=== PATIENT | female | born 1980 | race Caucasian/White ===

== ENCOUNTER 2020-10-20 13:05 | Outpatient (REF) | payer OTHER, SELFPAY | END 2020-10-20 13:06 | disposition home or self-care (01) | LOC: HO.LAB 13:05 | PROVIDERS: PCP Internal Medicine; Visit Provider Internal Medicine | DX: Z20.822 Contact with and (suspected) exposure to COVID-19 (principal) | CPT/HCPCS: C9803; U0003; U0005 ==

== ENCOUNTER 2020-11-27 12:50 | Outpatient (REF) | payer OTHER, SELFPAY | END 2020-11-27 12:51 | disposition home or self-care (01) | LOC: HO.LAB 12:50 | PROVIDERS: PCP Internal Medicine; Visit Provider Internal Medicine | DX: Z20.822 Contact with and (suspected) exposure to COVID-19 (principal) | CPT/HCPCS: C9803; U0003; U0005 ==

== ENCOUNTER → 2023-03-17 08:15 | Outpatient (BNV) | payer OTHER, SELFPAY | PROVIDERS: Visit Provider Psychiatry & Neurology Psychiatry | DX: F31.30 Bipolar disorder, current episode depressed, mild or moderate severity, unspecified (principal); F41.8 Other specified anxiety disorders; F17.200 Nicotine dependence, unspecified, uncomplicated; F11.21 Opioid dependence, in remission | CPT/HCPCS: 90792; 99211; 99213 ==

== ENCOUNTER 2023-03-28 09:45 | Outpatient (RCR) | payer OTHER, SELFPAY ==
[2023-03-14 12:02] VITALS: BMI 39.7
[2023-03-14 12:04] VITALS: BP 106/70; PULSE 96; TEMP 36.8
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
--- NOTE | 2023-03-16 17:59 | HO.PHP ---
Client's case has been opened and reviewed in treatment team.
--- NOTE | 2023-03-18 00:05 | HO.PHPPROGNO ---
Subjective Subjective Date of Service: 03/17/23 Reason For Visit: bipolar,GISELA,hoarding d/o Interim History: Has had an uneventful week. Had trouble filling the Wellbutrin because was ordered as 50 mg (and expectedly pharmacy takes issue with cutting SRs despite reported data/documentation (see admission note), but patient still wants to get started on Wellbutrin SR 50 mg. Will order at 100 mg SR and patient knows to cut in half once. If needing a dose higher than 50 mg, we will likely switch to a different medication. Patient has otherwise been compliant on medications. She admits she often loses the 25 mg tablets she takes of the 250 mg of Lamcital and is agreeable to increasing the dose to 300 mg/d. We will start splitting the dose to BID and for now will take 100 mg in AM and 200 mg in PM. She inquires about sleep, saying she needs help with sleep. She asks if she can have doxepin because her sister takes this medication, however her sister is on no other medications, and I have some concerns about starting TCA given drug interactions and would need to order a baseline EKG as patient had been hospitalized twice last year for complications related to treatment with Wegovy and had cardiac monitoring for tacchycardia. Instead we agree to trial of gabapentin for sleep and will start at 300 mg at night, and she may increase dose to 600 mg for effect over the weekend if needed. Follow up next week. Medication Compliance: Yes Side effects from medications: No Attending Groups: Yes Review of Systems Acute medical concerns: No Diagnostics Vital Signs (24Hr): BMI result Body Mass Index 39.7 Assessment & Plan Assessment & Plan (1) Bipolar affective, depress, unspec: Status: Acute Code(s): F31.30 - Bipolar disorder, current episode depressed, mild or moderate severity, unspecified (2) Other specified anxiety disorders: Status: Acute Code(s): F41.8 - Other specified anxiety disorders (3) Nicotine dependence with current use: Status: Acute Code(s): F17.200 - Nicotine dependence, unspecified, uncomplicated (4) Opioid dependence in remission: Status: Acute Code(s): F11.21 - Opioid dependence, in remission Plan increase Lamcital to 300 mg/d (split 100/200) if tolerated may eventually split 150 mg bid start gabapentin 300 - 600 mg qhs for sleep will cont with plan to start Wellbutrin SR 50 mg qAM (pt eager to start, as she had been successfully treated for years on WB she feels it was extrenuous circumstances that lent to developing seizure x1) pending lab work continue to monitor Patient educated on: diagnosis and medication risk/benefits Informed Consent: understands Reason for contiued partial hosp. stay Substantial Risk for: rapid decompensation and med/psych decompensation Certification I certify that partial hospital treatment is medically necessary due to the symptoms and problems resulting from the patient's mental illness and the failure to treat the patient at the partial hospital level of care would likely result in the patient requiring inpatient psychiatric care which could not be prevented at a less intensive level of care. Total time managing care of this patient today _20___ minutes. Discharge Plan Discharge Attending provider: Mesha Segovia Medications: New lamotrigine 100 mg tablet See Rx Instructions .ROUTE .COMPLEX Qty: 30 0RF Rx Instructions: take 1 tablet po qAM and take 2 tablets po qHS gabapentin 300 mg capsule 300 - 600 mg PO BEDTIME Qty: 20 0RF Changed bupropion HCl [Wellbutrin SR] 100 mg tablet sustained-release 12 hr 100 mg PO QAM Qty: 30 0RF No Action clonidine HCl 0.1 mg tablet See Rx Instructions .ROUTE .COMPLEX Rx Instructions: Take one tab at Bedtime as needed and one tab daily in the morning. lamotrigine 200 mg tablet 200 mg PO BEDTIME Rx Instructions: Take with 2 25 mg tabs for a total dose of 250 mg at bedtime. clonazepam 0.5 mg tablet See Rx Instructions .ROUTE .COMPLEX Rx Instructions: Take one tab in the moring, one and a half tabs at Bedtime, and one tab PRN for anxiety. lamotrigine 25 mg tablet 50 mg PO BEDTIME Rx Instructions: Take 2 tabs at HS with 200 mg tab for a total daily dose of 250 mg. prazosin 5 mg capsule 5 mg PO BEDTIME omeprazole 20 mg capsule,delayed release(DR/EC) 20 mg PO DAILY norethindrone ac-eth estradiol [Microgestin 02/25 (21)] 1-20 mg-mcg Tablet 1 tab PO DAILY fluticasone propionate 50 mcg/actuation spray,suspension 2 spray intranasal DAILY lurasidone 80 mg tablet 80 mg PO DAILY Stand Alone Forms: Patient Portal Discharge page
--- NOTE | 2023-03-24 23:46 | P.PNPSP_ITS ---
Subjective Subjective Date of Service: 03/24/23 Reason For Visit: bipolar,GISELA,hoarding d/o Interim History: Patient started on Wellbutrin SR 100 mg , she notes having more energy in the AM , mood is better . She denies any AE, no s/s of overactiviation, hypomania, irritablity, insomnia. She has been taking the gabapenting and finds 900 mg is the right dose to help her get a good night's sleep. She denies any adverse effects. Sleep and energy are improved, appetite intact. She reports losing her bottle of clonazepam in her home somewhere, which has been difficult to find on account of hoarding habits. She has been unable to take any Klonopin over the past 2 days. She did not have many pills left in her bottle, She tried calling for her parhamcy for a refill but was told she is not due to refill until next week. She tried reachign out to her PCP and left a VM message but has not yet heard back and is worried she wont be hearing back since it is Monday. We discussed bridging her with a short trial of lorazepam over the long Holiday weekend, unless she finds that her PCP has sent the script today. Regardless she will only fill the one script. Medication Compliance: Yes Side effects from medications: No Attending Groups: Yes Review of Systems Acute medical concerns: No Mental Status Exam Mental Status Exam Narrative: Alert, oriented, in no acute distress. Calm, cooperative. Mood stable, affect appropriate. Speech normal. Thought process linear, coherent. Thought content related to stressors, denies any helplessness, hopelessness or SI.? No aggressive ideation or HI. No paranoia or delusional content elicited. No evidence of psychosis. Insight and judgment intact. Diagnostics Vital Signs (24Hr): BMI result Body Mass Index 39.7 Assessment & Plan Assessment & Plan (1) Bipolar affective, depress, unspec: Status: Acute Code(s): F31.30 - Bipolar disorder, current episode depressed, mild or moderate severity, unspecified (2) Other specified anxiety disorders: Status: Acute Code(s): F41.8 - Other specified anxiety disorders (3) Nicotine dependence with current use: Status: Acute Code(s): F17.200 - Nicotine dependence, unspecified, uncomplicated (4) Opioid dependence in remission: Status: Acute Code(s): F11.21 - Opioid dependence, in remission Plan will order brief course of lorazepam to cover patient over holiday weekend (in place of her lost clonazepam rx) continue Wellbutrin SR at 100 mg qAM (split 100/200) (pt eager to start, as she had been successfully treated for years on WB she feels it was extrenuous circumstances that lent to developing seizure x1) continue Lamcital 300 mg qd continue gabapentin at 900 mg qhs start gabapentin 300 mg BID prn anxiety pending lab work continue to monitor Patient educated on: diagnosis, medication risk/benefits and substance abuse Informed Consent: understands Reason for contiued partial hosp. stay Substantial Risk for: inability to function and med/psych decompensation Certification I certify that partial hospital treatment is medically necessary due to the symp toms and problems resulting from the patient's mental illness and the failure to treat the patient at the partial hospital level of care would likely result in the patient requiring inpatient psychiatric care which could not be prevented at a less intensive level of care. Total time managing care of this patient today _30___ minutes. Discharge Plan Discharge Attending provider: Mesha Segovia Medications: New clonazepam 0.5 mg tablet 0.5 mg PO BID PRN (Reason: anxiety, sleep) Qty: 22 0RF Continued clonazepam 0.5 mg tablet See Rx Instructions .ROUTE .COMPLEX Rx Instructions: Take one tab in the moring, one and a half tabs at Bedtime, and one tab PRN for anxiety. prazosin 5 mg capsule 5 mg PO BEDTIME omeprazole 20 mg capsule,delayed release(DR/EC) 20 mg PO DAILY norethindrone ac-eth estradiol [Microgestin 02/25 (21)] 1-20 mg-mcg Tablet 1 tab PO DAILY fluticasone propionate 50 mcg/actuation spray,suspension 2 spray intranasal DAILY gabapentin 600 mg tablet 600 mg PO BEDTIME Qty: 30 0RF Rx Instructions: take with 300 mg capsule to equal 900 mg QHS gabapentin 300 mg capsule 300 mg PO TID Qty: 90 0RF lamotrigine 100 mg tablet See Rx Instructions .ROUTE .COMPLEX 30 Days Qty: 90 0RF Rx Instructions: take 1 tablet po qAM and take 2 tablets po qHS lurasidone 80 mg tablet 80 mg PO DAILY 30 Days Qty: 30 0RF Changed clonidine HCl 0.1 mg tablet See Rx Instructions .ROUTE .COMPLEX PRN (Reason: for anxiety, heart racing) 30 Days Qty: 60 0RF Rx Instructions: Take one tab at Bedtime as needed and one tab daily in the morning. PRN; bupropion HCl [Wellbutrin SR] 100 mg tablet sustained-release 12 hr 100 mg PO QAM Qty: 30 0RF Discontinued lamotrigine 200 mg tablet 200 mg PO BEDTIME Rx Instructions: Take with 2 25 mg tabs for a total dose of 250 mg at bedtime. lamotrigine 25 mg tablet 50 mg PO BEDTIME Rx Instructions: Take 2 tabs at HS with 200 mg tab for a total daily dose of 250 mg. Stand Alone Forms: Patient Portal Discharge page Patient Education: Bipolar Disorder (DC)
--- NOTE | 2023-03-28 20:13 | P.PNPSP_ITS ---
Subjective Subjective Date of Service: 03/28/23 Reason For Visit: bipolar,GISELA,hoarding d/o Interim History: Patient seen for follow-up, anticipating discharge at the end of program today.? Reports no acute issues or concerns. Medication compliant, medications well- tolerated. Denies any adverse effects.? She reports having a stressful day today. Had difficulty sleeping last night on account of today being the last day, having some anticipatory anxiety leaving program - the structure has been helpful. She is trying to make steps to implement more structure in her day. Lorazepam has been helpful this week since she had lost her bottle of clonazepam in her house and is unable to refill until later next week. She left a VM message with her provider's office and will let them know she will need that refill once her lorazepam runs out. She reports having a good working relationship with her provider, who knows she struggles with hoarding. (often losing things). I suggest at some point she should get neuropsych testing. For the time being she reports great imporviements in mood a nd concetration with the Wellbutrin. Energy and productivity are good. She is aware to hold the medication in cases of GI illness, or other sickness, dehydration, lack of sleep (other context putting her at risk for seizures) Denies alcohol use. SHe has toelrated increase of Lamcital and addition of gabapentin. Mood is overall stable.? Denies any hopelessness or SI. Denies thoughts of harming self or others at this time. Denies any aggressive ideation or HI. Denies any paranoia or AH or VH. Sleep, appetite, energy stable. Mental Status Exam Mental Status Exam Narrative: Alert, oriented, in no acute distress. Calm, cooperative. Mood stable, affect appropriate. Speech normal. Thought process linear, coherent. Thought content related to stressors, denies any helplessness, hopelessness or SI.? No aggressive ideation or HI. No paranoia or delusional content elicited. No evidence of psychosis. Insight and judgment intact. Diagnostics Vital Signs (24Hr): BMI result Body Mass Index 39.7 Assessment & Plan Assessment & Plan (1) Bipolar affective, depress, unspec: Status: Acute Code(s): F31.30 - Bipolar disorder, current episode depressed, mild or moderate severity, unspecified (2) Other specified anxiety disorders: Status: Acute Code(s): F41.8 - Other specified anxiety disorders (3) Nicotine dependence with current use: Status: Acute Code(s): F17.200 - Nicotine dependence, unspecified, uncomplicated (4) Hoarding behavior: Status: Acute Code(s): F42.3 - Hoarding disorder (5) Attention and concentration deficit: Status: Acute Code(s): R41.840 - Attention and concentration deficit (6) Opioid dependence in remission: Status: Acute Code(s): F11.21 - Opioid dependence, in remission Plan Discharge from PHP gabapentin 300 mg BID - qAM and afternoon gabapentin 900 mg qHS Lamictal 300 mg (split 100/200) Wellbutrin SR 50-100 mg qAM as directed for ADHD sx discontinued: clonidine, patient will discontinue lorazepam after this script and will be able to refill/return to clonazepam continue other regular medications will defer further medication management to outpatient provider - next appointment 04/16 Refills sent to pharmacy Patient educated on: diagnosis and medication risk/benefits Informed Consent: understands Reason for contiued partial hosp. stay Substantial Risk for: stable for discharge Certification I certify that partial hospital treatment is medically necessary due to the symptoms and problems resulting from the patient's mental illness and the failure to treat the patient at the partial hospital level of care would likely result in the patient requiring inpatient psychiatric care which could not be prevented at a less intensive level of care. Total time managing care of this patient today __30__ minutes. Discharge Plan Discharge Attending provider: Mesha Segovia Medications: New gabapentin 300 mg capsule 300 mg PO TID Qty: 30 0RF gabapentin 600 mg tablet 600 mg PO BEDTIME Qty: 15 0RF Rx Instructions: take with 300 mg capsule to equal 900 mg QHS lorazepam 1 mg tablet 1 mg PO BID PRN (Reason: for anxiety, agitation, sleep) Qty: 14 0RF Continued prazosin 5 mg capsule 5 mg PO BEDTIME omeprazole 20 mg capsule,delayed release(DR/EC) 20 mg PO DAILY norethindrone ac-eth estradiol [Microgestin 02/25 ()] 1-20 mg-mcg Tablet 1 tab PO DAILY fluticasone propionate 50 mcg/actuation spray,suspension 2 spray intranasal DAILY lurasidone 80 mg tablet 80 mg PO DAILY lamotrigine 100 mg tablet See Rx Instructions .ROUTE .COMPLEX 30 Days Qty: 90 0RF Rx Instructions: take 1 tablet po qAM and take 2 tablets po qHS Changed clonidine HCl 0.1 mg tablet See Rx Instructions .ROUTE .COMPLEX PRN (Reason: for anxiety, heart racing) 30 Days Qty: 60 0RF Rx Instructions: Take one tab at Bedtime as needed and one tab daily in the morning. PRN; bupropion HCl [Wellbutrin SR] 100 mg tablet sustained-release 12 hr 100 mg PO QAM Qty: 30 0RF Discontinued lamotrigine 200 mg tablet 200 mg PO BEDTIME Rx Instructions: Take with 2 25 mg tabs for a total dose of 250 mg at bedtime. lamotrigine 25 mg tablet 50 mg PO BEDTIME Rx Instructions: Take 2 tabs at HS with 200 mg tab for a total daily dose of 250 mg. No Action clonazepam 0.5 mg tablet See Rx Instructions .ROUTE .COMPLEX Rx Instructions: Take one tab in the moring, one and a half tabs at Bedtime, and one tab PRN for anxiety. Stand Alone Forms: Patient Portal Discharge page Patient Education: Bipolar Disorder (DC)
== END 2023-03-28 23:59 | disposition home or self-care (01) ==
LOC: HO.PHPA 09:45
PROVIDERS: Visit Provider Psychiatry & Neurology Psychiatry
DX: F31.30 Bipolar disorder, current episode depressed, mild or moderate severity, unspecified (principal); F41.8 Other specified anxiety disorders; F42.3 Hoarding disorder; R41.840 Attention and concentration deficit; F17.200 Nicotine dependence, unspecified, uncomplicated; F11.21 Opioid dependence, in remission; Z79.899 Other long term (current) drug therapy
CPT/HCPCS: 90791; 90853

== ENCOUNTER → 2023-06-23 12:15 | Outpatient (BNV) | payer OTHER, SELFPAY | PROVIDERS: Visit Provider Psychiatry & Neurology Psychiatry | DX: F31.9 Bipolar disorder, unspecified (principal); F41.8 Other specified anxiety disorders; F42.3 Hoarding disorder; R41.840 Attention and concentration deficit; F11.21 Opioid dependence, in remission | CPT/HCPCS: 90792; 99213; 99499 ==

== ENCOUNTER 2023-07-11 11:30 | Outpatient (RCR) | payer OTHER, SELFPAY ==
[2023-06-21 16:29] VITALS: BP 100/62; PULSE 64; RESP 16; TEMP 36.2
--- NOTE | 2023-06-22 17:05 | HO.PHP ---
Pt's case has been opened and reviewed in team.
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
--- NOTE | 2023-06-26 08:04 | HO.PHP ---
Karyn contacted PHP Admin, Reba, who informed the team that Karyn will not be in attendance to program today due to becoming sick. Karyn will be here tomorrow.
--- NOTE | 2023-06-27 08:34 | HO.PHP ---
Late Entry 06/27/23: [facility] admin, Reba noted that Karyn won't be in attendance to program today because she is sick. Reba reported no safety concerns.
--- NOTE | 2023-06-27 09:35 | HO.PHP ---
At 9:30 am marketing writer called Karyn to check in and assess for safety since pt has called out 2 days in a row. Pt stated she has been having too much anxiety to drive. Needed prompting to elaborate, said she takes back roads to [facility] because she feels nervous to drive on the highway so it takes longer, stated she needed more time this morning. Pt encouraged to come to programming tomorrow, pt stated she will. Pt reminded of the attendance policy. Reported she is safe, no SI.
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
--- NOTE | 2023-06-30 23:46 | HO.PHPPROGNO ---
Subjective Subjective Date of Service: 06/30/23 Reason For Visit: bipolar,GISELA,hoarding d/o Interim History: Patient reports week is going well. Mood is pretty good . She reports sleeping 13 hours last night, this comes after getting only a few hours of sleep for the couple nights before. She said this is a familar patterns of undersleeping/oversleeping. Feels rested today. Energy fluctuating. Energy currently at a 6 . Reports mood stability at a 7 out of 10 today. Denies any SI, HI, AH,VH. Medication Compliance: Yes Side effects from medications: No Attending Groups: Yes Review of Systems Acute medical concerns: No Mental Status Exam Mental Status Exam Narrative: Alert, oriented, in no acute distress. Cooperative, engaged. Mood ok , affect elevated, mood congruent no lability noted. Speech normal. Thought process scattered, but logical, coherent. Thought content related to stressors, executive dysfunction, no helplessness and hopelessness, denies SI, intention or plan. Denies any aggressive ideation. No paranoia or delusional content elicited. No evidence of psychosis. Insight and judgment fair but adequate. Assessment & Plan Assessment & Plan (1) Bipolar disorder, unspecified: Status: Acute Code(s): F31.9 - Bipolar disorder, unspecified (2) Other specified anxiety disorders: Status: Acute Code(s): F41.8 - Other specified anxiety disorders (3) Hoarding behavior: Status: Acute Code(s): F42.3 - Hoarding disorder (4) Attention and concentration deficit: Status: Acute Code(s): R41.840 - Attention and concentration deficit (5) Opioid dependence in remission: Status: Acute Code(s): F11.21 - Opioid dependence, in remission Plan continue gabapentin 300 mg BID (AM and afternoon) increase gabapentin to 900-1200 mg qhs continue Lamictal 250 mg BID continue Latuda 80 mg qd w meal continue clonidine 0.1 mg TID prn continue prazosin 5 mg qhs continue clonazepam 0.5 mg in AM/1.5 mg at bedtime (1 mg qd PRN anxiety) continue naltrexone 50 mg qhs Patient educated on: diagnosis and medication risk/benefits Informed Consent: understands Certification I certify that partial hospital treatment is medically necessary due to the symptoms and problems resulting from the patient's mental illness and the failure to treat the patient at the partial hospital level of care would likely result in the patient requiring inpatient psychiatric care which could not be prevented at a less intensive level of care. Total time managing care of this patient today _30___ minutes. Discharge Plan Discharge Attending provider: Mesha Segovia Medications: New nicotine 14 mg/24 hr patch 24 hour 1 patch transdermal DAILY Qty: 14 0RF Rx Instructions: apply one patch daily in AM; remove patch daily at bedtime Continued clonazepam 0.5 mg tablet See Rx Instructions .ROUTE .COMPLEX Rx Instructions: Take one tab in the moring, one and a half tabs at Bedtime, and one tab PRN for anxiety. prazosin 5 mg capsule 5 mg PO BEDTIME norethindrone ac-eth estradiol [Microgestin 02/25 ()] 1-20 mg-mcg Tablet 1 tab PO DAILY gabapentin 600 mg tablet 600 mg PO BEDTIME Qty: 30 0RF Rx Instructions: take with 300 mg capsule to equal 900 mg QHS gabapentin 300 mg capsule 300 mg PO TID Qty: 90 0RF lamotrigine 200 mg Tablet 200 mg PO DAILY lamotrigine 100 mg Tablet 50 mg PO DAILY MDD 250mg Rx Instructions: takes 200mg and 1/2 of 100mg tab for TDD of 250mg lurasidone [Latuda] 80 mg Tablet 80 mg PO QPM Rx Instructions: must administer with food (at least 350 calories) naltrexone 50 mg Tablet 50 mg PO DAILY Changed clonidine HCl 0.1 mg tablet 0.1 mg PO TID PRN (Reason: for anxiety, heart racing) 14 Days Qty: 42 0RF Stand Alone Forms: Patient Portal Discharge page Print Language: Slovenian Telehealth Telehealth Telehealth Platform: Telephone Location of provider rendering services: other ([facility] Location of patient: other (home)
--- NOTE | 2023-07-04 23:05 | P.PNPSP_ITS ---
Subjective Subjective Date of Service: 07/04/23 Reason For Visit: bipolar,GISELA,hoarding d/o Interim History: Patient reports sleep has been terrible..3 days sleep deprived . Patient states she has gotten no sleep during this time. She found that the 1200 mg of gabapentin was helpful (only got as much as 3 hrs of sleep) but she has since run out. She continues to have a lot of anxiety about her family. She also received a text that she needs to return to work which also made her anxious, however she is amidst transitioning to residential disability after 07/14 for mental health reasons. She has been trying to complete this paperwork herself and says it has taken her a very long time. Her therapist was unable to help her. She reports feeling jittery at night, she is talkative but this is her baseline. There is no pressured speech, or tangientiality, and she does not present as man ic. She reports last being manic in March and is usually marked by elevated mood, paranoia. She denies any abherrent thoughts. Reports her mood as less depressed, but anxious; depression severity at a 6 out 10, anxiety at an 8 out 10. She denies any SI, HI, AH, VH. She is on a wait list for neuropsych evaluation which we had previously discussed and was advised to undergo due to long history of attentional and organizational deficits, many of these issues were present in childhood, but she was able to compensate likely due to high intellectual assets. In fact she excelled academically in ES, MS and HS. In college she had more difficulty with prioritization and negotiating competing demands, and focused on her writing skills and college newspaper, but often struggled to manage other areas of school and life. She has found that over the years she has increasingly struggled with organization and has developed maladaptive coping strategies, namely avoidant behaviors, procrastination, and serious problems with hoarding. I used to be able to read all the time...I would check out 30 books at a time...now I can barely read one page at a time before I got to put it down and walk away (due to frustration) . Executive dysfunction has been especially problematic over the past 10 yrs. We reviewed her past medication trials. She has been on on and off Latuda for the past 4 years. I ask if she has ever had a history of TD because I notice her tendency to chew her lips. She says she is unaware of this but surmises that her lips are chapped and that this is just a habituated behavior. No other abnormalities of movement noted. Will continue to monitor. Medication Compliance: Yes Side effects from medications: No Attending Groups: Yes Review of Systems Acute medical concerns: No Mental Status Exam Mental Status Exam Narrative: Alert, oriented, in no acute distress. Cooperative, engaged. Mood anxious, depressed, affect anxious, no lability noted. Speech normal. Thought process scattered, but logical, coherent. Thought content related to stressors, executive dysfunction, no helplessness and hopelessness, denies SI, intention or plan. Denies any aggressive ideation. No paranoia or delusional content elicited. No evidence of psychosis. Insight and judgment fair but adequate. Assessment & Plan Assessment & Plan (1) Bipolar disorder, unspecified: Status: Acute Code(s): F31.9 - Bipolar disorder, unspecified (2) Other specified anxiety disorders: Status: Acute Code(s): F41.8 - Other specified anxiety disorders (3) Hoarding behavior: Status: Acute Code(s): F42.3 - Hoarding disorder (4) Attention and concentration deficit: Status: Acute Code(s): R41.840 - Attention and concentration deficit (5) Opioid dependence in remission: Status: Acute Code(s): F11.21 - Opioid dependence, in remission Plan start olanzapine 2.5 mg qhs continue gabapentin 300 mg BID (AM and afternoon) continue gabapentin to 900-1200 mg qhs continue Lamictal 250 mg BID continue Latuda 80 mg qd w meal continue clonidine 0.1 mg TID prn (reminded patient to keep dose from HS dosing of prazosin by >4 hours continue prazosin 5 mg qhs continue clonazepam 0.5 mg in AM/1.5 mg at bedtime (1 mg qd PRN anxiety) continue naltrexone 50 mg qhs Routine lab work ordered UDS, EKG as indicated Continue to monitor Patient educated on: diagnosis, medication risk/benefits, substance abuse and therapeutic strategies Informed Consent: understands Reason for contiued partial hosp. stay Substantial Risk for: inability to function, rapid decompensation and med/psych decompensation Certification I certify that partial hospital treatment is medically necessary due to the symptoms and problems resulting from the patient's mental illness and the failure to treat the patient at the partial hospital level of care would likely result in the patient requiring inpatient psychiatric care which could not be prevented at a less intensive level of care. Total time managing care of this patient today _30___ minutes. Discharge Plan Discharge Attending provider: Mesha Segovia Medications: New nicotine 14 mg/24 hr patch 24 hour 1 patch transdermal DAILY Qty: 14 0RF Rx Instructions: apply one patch daily in AM; remove patch daily at bedtime gabapentin 800 mg tablet 1,200 - 1,600 mg PO BEDTIME Qty: 30 0RF guanfacine 1 mg tablet extended release 24 hr 1 mg PO DAILY Qty: 20 0RF benztropine 1 mg tablet 0.5 - 1 mg PO .QHS Qty: 20 0RF lurasidone 60 mg tablet 60 mg PO QAM Qty: 30 0RF Rx Instructions: must administer with food (at least 350 calories) ergocalciferol (vitamin D2) [Vitamin D2] 1,250 mcg (50,000 unit) capsule 1,250 mcg PO QWEEK Qty: 12 0RF Continued clonazepam 0.5 mg tablet See Rx Instructions .ROUTE .COMPLEX Rx Instructions: Take one tab in the moring, one and a half tabs at Bedtime, and one tab PRN for anxiety. norethindrone ac-eth estradiol [Microgestin 02/25 ()] 1-20 mg-mcg Tablet 1 tab PO DAILY lamotrigine 200 mg Tablet 200 mg PO DAILY lamotrigine 100 mg Tablet 50 mg PO DAILY MDD 250mg Rx Instructions: takes 200mg and 1/2 of 100mg tab for TDD of 250mg naltrexone 50 mg Tablet 50 mg PO DAILY Changed lurasidone [Latuda] 80 mg Tablet 80 mg PO DAILY Qty: 14 0RF Rx Instructions: must administer with food (at least 350 calories) clonidine HCl 0.1 mg tablet See Rx Instructions .ROUTE .COMPLEX PRN (Reason: for anxiety, heart racing) Qty: 30 0RF Rx Instructions: take 1-2 tablets po daily at bedtime PRN sleep; may take an additional 1 tablet PRN insomnia Held prazosin 5 mg capsule 5 mg PO BEDTIME Hold Instructions: Resume on 08/01/23. trial guanfacine Discontinued gabapentin 600 mg tablet 600 mg PO BEDTIME Qty: 30 0RF Rx Instructions: take with 300 mg capsule to equal 900 mg QHS gabapentin 300 mg capsule 300 mg PO TID Qty: 90 0RF Stand Alone Forms: Patient Portal Discharge page Patient Education: Bipolar Disorder (DC) Print Language: Croatian
--- NOTE | 2023-07-06 15:58 | HO.PHP ---
Client's last covered day is today. Pt has [facility]. 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 A [facility] rep called a [facility] staff outside of program hours yesterday and left a voicemail with questions and did not reply to the extension. PHP staff called [facility] several times today along with 3 voicemails. The voicemails were left at 7:30 am and at 1pm for Hilary and a voicemail was left for Susan Palm at 3:00. Details were left in the messages and immediate response requested. Pt was told she will be contacted by [facility] staff as soon as coverage extension is approved or by end of day today. If [facility] does not respond, pt will not come in tomorrow.
--- NOTE | 2023-07-06 17:04 | HO.PHP ---
Susan Palm from [facility] called at 5:00pm to approve an extension for Karyn until 07/10. Pt called and notified, reports she will be in tomorrow.
--- NOTE | 2023-07-07 10:46 | HO.PHP ---
Addendum entered by Selina Kang 07/07/23 10:48: Edit: Attendance to program Monday, not today. Original Note: Karyn informed [facility] staff that she is not feeling well today and is going to need to leave the program early. Karyn shared that she has stomach pains. [facility] staff member explored how she will be getting home today, in which she noted she will be taking an uber. [facility] staff member was receptive and assessed any safety concerns. Karyn reported no safety concerns, SI, plan or intent. Karyn voiced that she will be in attendance to program today.
--- NOTE | 2023-07-11 23:47 | P.PNPSP_ITS ---
Subjective Subjective Date of Service: 07/11/23 Reason For Visit: bipolar,GISELA,hoarding d/o Interim History: Patient seen for follow-up, anticipating discharge at the end of program today.? She reports ongoing trouble with sleep. She tried taking the Zyprexa one time but just made her feel more jittery and agitated and did not sleep. She continues to feel exhausted during the day but then wide awake, restless and unable to sleep at night. At most is getting 1-2 hours. She is prescribed prazosin 5 mg as well as 1-2 mg of clonidine at night which she reportedly has been on for many years but still gets nightmares. Latuda is taken in the evening, dose has been at 80 mg for the past 3 months, and there is reason to suspect this may be causing her activiation as it fits into the time frame of her sleep issues. SHe denies feeling tired after taking the medicaiton and in fact feels more awake and restless as the night progresses. SHe is willing to try taking dose of Latuda earlier in the day, with lunch as she does not eat breakfast regularly. (Apparently sylvester has a history of getting overactivated on Abilify, causing agitation, insomnia,and eventually AH from lack of sleep) She also notes running out of gabapentin 3 nights ago which also had been helping her sleep. WIll send over refills to her [facility]. Denies any acute issues or concerns. Medication compliant, medications well-tolerated. Denies any adverse effects.?Mood is stable.? Denies any hopelessness or SI. Denies thoughts of harming self or others at this time. Denies any aggressive ideation or HI. Denies any paranoia or AH or VH. Mental Status Exam Mental Status Exam Narrative: Alert, oriented, in no acute distress. Calm, cooperative, engaged. Eye contact maintained. Mood okay, tired , affect brighter than expected, mood congruent. Speech normal. Thought process linear, coherent. Thought content related to stressors, denies any helplessness, hopelessness or SI.? No aggressive ideation or HI. No paranoia or delusional content elicited. No evidence of psychosis. Insight and judgment fair but adequate. Assessment & Plan Assessment & Plan (1) Bipolar disorder, unspecified: Status: Acute Code(s): F31.9 - Bipolar disorder, unspecified (2) Other specified anxiety disorders: Status: Acute Code(s): F41.8 - Other specified anxiety disorders (3) Hoarding behavior: Status: Acute Code(s): F42.3 - Hoarding disorder (4) Attention and concentration deficit: Status: Acute Code(s): R41.840 - Attention and concentration deficit (5) Opioid dependence in remission: Status: Acute Code(s): F11.21 - Opioid dependence, in remission Plan Discharge from [facility] discontinued olanzapine (did not tolerate ?activation vs akithisia) move Latuda 80 mg qd w meal at lunch continue gabapentin 300 mg BID (AM and afternoon) continue gabapentin to 900-1200 mg qhs continue Lamictal 250 mg BID continue clonidine 0.1 mg TID prn (reminded patient to keep dose from HS dosing of prazosin by >4 hours continue prazosin 5 mg qhs continue clonazepam 0.5 mg in AM/1.5 mg at bedtime (1 mg qd PRN anxiety) continue naltrexone 50 mg qhs Routine lab work ordered UDS, EKG as indicated Continue to monitor Continue regular medications Refills sent to pharmacy Will defer further medication management to outpatient provider *Safety plan reviewed *Discharge Diagnoses reviewed with patient, as well as treatment course, discharge plan (including medication regime, medication management, potential side effects) as well as treatment rationale were also revisited Patient educated on: diagnosis and medication risk/benefits Informed Consent: understands Reason for contiued partial hosp. stay Substantial Risk for: stable for discharge Certification I certify that partial hospital treatment is medically necessary due to the symptoms and problems resulting from the patient's mental illness and the failure to treat the patient at the partial hospital level of care would likely result in the patient requiring inpatient psychiatric care which could not be prevented at a less intensive level of care. Total time managing care of this patient today __30__ minutes. Discharge Plan Discharge Attending provider: Mesha Segovia Medications: New nicotine 14 mg/24 hr patch 24 hour 1 patch transdermal DAILY Qty: 14 0RF Rx Instructions: apply one patch daily in AM; remove patch daily at bedtime gabapentin 800 mg tablet 1,200 - 1,600 mg PO BEDTIME Qty: 30 0RF guanfacine 1 mg tablet extended release 24 hr 1 mg PO DAILY Qty: 20 0RF benztropine 1 mg tablet 0.5 - 1 mg PO .QHS Qty: 20 0RF lurasidone 60 mg tablet 60 mg PO QAM Qty: 30 0RF Rx Instructions: must administer with food (at least 350 calories) ergocalciferol (vitamin D2) [Vitamin D2] 1,250 mcg (50,000 unit) capsule 1,250 mcg PO QWEEK Qty: 12 0RF Continued clonazepam 0.5 mg tablet See Rx Instructions .ROUTE .COMPLEX Rx Instructions: Take one tab in the moring, one and a half tabs at Bedtime, and one tab PRN for anxiety. norethindrone ac-eth estradiol [Microgestin 02/25 ()] 1-20 mg-mcg Tablet 1 tab PO DAILY lamotrigine 200 mg Tablet 200 mg PO DAILY lamotrigine 100 mg Tablet 50 mg PO DAILY MDD 250mg Rx Instructions: takes 200mg and 1/2 of 100mg tab for TDD of 250mg naltrexone 50 mg Tablet 50 mg PO DAILY Changed lurasidone [Latuda] 80 mg Tablet 80 mg PO DAILY Qty: 14 0RF Rx Instructions: must administer with food (at least 350 calories) clonidine HCl 0.1 mg tablet See Rx Instructions .ROUTE .COMPLEX PRN (Reason: for anxiety, heart racing) Qty: 30 0RF Rx Instructions: take 1-2 tablets po daily at bedtime PRN sleep; may take an additional 1 tablet PRN insomnia Held prazosin 5 mg capsule 5 mg PO BEDTIME Hold Instructions: Resume on 08/01/23. trial guanfacine Discontinued gabapentin 600 mg tablet 600 mg PO BEDTIME Qty: 30 0RF Rx Instructions: take with 300 mg capsule to equal 900 mg QHS gabapentin 300 mg capsule 300 mg PO TID Qty: 90 0RF Stand Alone Forms: Patient Portal Discharge page Patient Education: Bipolar Disorder (DC) Print Language: Danish
--- NOTE | 2023-07-21 23:52 | PM.EVENT ---
Event Note Date of Service: 07/22/23 Event Note: Patient called looking for a refill on her clonidine. She was given a 2 week supply on discharge, but her follow up appointment with her provider is not until August 07. She reports doing okay but has been out of clonidine and has not been getting good sleep. Denies any SI. Refill was sent to pharmacy. Time Spent With Patient Time: Total time managing care of this patient today __10__ minutes.
== END 2023-07-11 23:59 | disposition home or self-care (01) ==
LOC: HO.PHPA 11:30
PROVIDERS: Visit Provider Psychiatry & Neurology Psychiatry
DX: F31.9 Bipolar disorder, unspecified (principal); F41.8 Other specified anxiety disorders; F42.3 Hoarding disorder; R41.840 Attention and concentration deficit; F11.21 Opioid dependence, in remission; Z79.899 Other long term (current) drug therapy
CPT/HCPCS: 90791; 90853

== ENCOUNTER → 2023-07-12 13:19 | Outpatient (REF) | payer OTHER, SELFPAY ==
[2023-07-12 13:45] LABS: MANUAL DIFF FLAG NO
--- NOTE | 2023-07-12 13:47 | ECG_ITS ---
Test Reason : CHECK QT FOR MED CONSIDERATION Blood Pressure : / mmHG Vent. Rate : 063 BPM Atrial Rate : 063 BPM P-R Int : 152 ms QRS Dur : 082 ms QT Int : 392 ms P-R-T Axes : 064 048 034 degrees QTc Int : 401 ms Normal sinus rhythm with sinus arrhythmia Normal ECG No previous ECGs available Referred By: Mesha Segovia Electronically Signed By:MEGAN CARVALHO MD
[2023-07-12 14:42] LABS: Basophils Absolute Auto 0.1 X10*3/uL (0.0-0.2); Basophils Percent Auto 0.7 % (0-2); Eosinophils Absolute Auto 0.2 X10*3/uL (0.0-0.4); Eosinophils Percent Auto 2.3 % (0-4); Hemoglobin 13.2 g/dl (12.0-16.0); Imm Gran Abs Auto 0.02 X10*3/uL (0.00-0.03); Imm Gran Pct Auto 0.3 % (0.0-0.4); Lymphocytes Absolute Auto 2.6 X10*3/uL (1.2-4.9); Lymphocytes Percent Auto 35.1 % (20-40); Mean Corpuscular HGB Conc 31.4 g/dl (31.0-35.0); Mean Corpuscular Hemoglobin 27.4 pg (27.0-33.0); Mean Corpuscular Volume 87.3 fL (80.0-98.0); Mean Platelet Volume 9.2 fL (9.4-12.3); Monocytes Absolute Auto 0.5 X10*3/uL (0.1-1.2); Neutrophils Percent Auto 54.6 % (45-73); Platelet Count 459 X10*3/uL (160-400); Red Blood Count 4.81 X10*6/uL (4.20-5.50); Red Cell Distribution Width 14.2 % (11.0-16.0); White Blood Count 7.4 X10*3/uL (4.8-10.8)
[2023-07-12 14:49] LABS: Estimated Average Glucose 105 mg/dL; Hemoglobin A1c % 5.3 % (<6.0)
[2023-07-12 15:14] LABS: Alanine Aminotransferase 18 U/L (0-31); Albumin Level 3.8 g/dL (3.5-5.0); Alkaline Phosphatase 76 U/L (39-117); Anion Gap 13 (12-20); Aspartate Amino Transferase 18 U/L (5-31); Bilirubin Total 0.3 mg/dL (0.0-1.0); Blood Urea Nitrogen 9 mg/dL (9-16); Calcium 9.6 mg/dL (8.4-10.2); Carbon Dioxide 25 mmol/L (22-29); Chloride 106 mmol/L (96-108); Cholesterol 245 mg/dL (<200); Estimated Glomerular Filt Rate > 60; Glucose Fasting 92 mg/dL (60-99); HDL Cholesterol 62 mg/dL (>40); Iron 60 mcg/dL (30-160); LDL Cholesterol Calculated 166 mg/dL (<100); Lactate Dehydrogenase 154 U/L (122-220); Magnesium 2.2 mg/dL (1.6-2.6); Percent Iron Saturation 18 % (15-50); Phosphorus 4.1 mg/dL (2.7-4.5); Potassium 4.5 mmol/L (3.3-5.1); Sodium 139 mmol/L (135-145); Total Iron Binding Capacity 340 mcg/dL (228-428); Triglycerides 89 mg/dL (<150); Unsaturated Iron Binding 280 ug/dL
[2023-07-12 15:17] LABS: Erythrocyte Sedimentation Rate 23 MM/HR (0-20)
[2023-07-12 15:19] LABS: Appearance Urine Cloudy; Color Urine Yellow; Glucose Urine UA Negative (Negative); Leukocyte Esterase Urine Moderate (2+) (Negative); Nitrite Urine Negative (Negative); PH 6.5 (5.0-9.0); UMIC TRIGGER UA YES; Urine Blood Negative (Negative); Urine Ketones Negative (Negative); Urine Protein Negative (Neg-Trace)
[2023-07-12 15:29] LABS: Bacteria Urine 3+ (None Seen); Hyaline Casts Urine 0-2 /LPF (0-2); WBC Urine 0-5 /HPF (0-5)
[2023-07-12 15:42] LABS: Folate 4.3 ng/mL (> or = 4.0); Vitamin B12 232 pg/mL (200-900)
[2023-07-13 11:33] LABS: Thyroglobulin 8.9 ng/mL
[2023-07-13 17:34] LABS: Triiodothyronine T3 Free 3.2 pg/mL (2.3-4.2); Triiodothyronine T3 Total 131 ng/dL (76-181)
[2023-07-17 13:38] LABS: Thyroglobulin Antibodies 1 IU/mL (< or = 1)
[2023-07-17 15:58] LABS: Thyroid Stimulating Immunoglob 90 % baseline (<140)
[2023-07-18 05:05] LABS: Lyme Abs Screen <0.90 index
== END ==
LOC: HO.CARD 13:19
PROVIDERS: PCP Family Medicine; Visit Provider Psychiatry & Neurology Psychiatry
DX: F31.9 Bipolar disorder, unspecified (principal); F42.3 Hoarding disorder
CPT/HCPCS: 36415; 80053; 80061; 81001; 82306; 82550; 82607; 82746; 83036; 83540; 83615; 83735; 84100; 84432; 84439; 84443; 84445; 84480; 84481; 85025; 85652; 86617; 86618; 86800; 93005

== ENCOUNTER → 2023-07-12 13:47 | Outpatient (BNV) | payer OTHER, SELFPAY | PROVIDERS: PCP Family Medicine; Visit Provider Internal Medicine Cardiovascular Disease | DX: I49.9 Cardiac arrhythmia, unspecified (principal) | CPT/HCPCS: 93010 ==

== ENCOUNTER → 2024-12-24 14:15 | Outpatient (REF) | payer OTHER, SELFPAY ==
--- NOTE | 2024-12-24 14:20 | ECG_ITS ---
Test Reason : QTC CHECK Blood Pressure : */* mmHG Vent. Rate : 84 BPM Atrial Rate : 84 BPM P-R Int : 158 ms QRS Dur : 78 ms QT Int : 352 ms P-R-T Axes : 38 26 33 degrees QTcB Int : 415 ms Normal sinus rhythm Normal ECG When compared with ECG of 12-Jul-2023 13:51, No significant change was found Referred By: Mesha Segovia Electronically Signed By: VENKATA TORRES
[2024-12-24 14:44] LABS: MANUAL DIFF FLAG NO
[2024-12-24 15:09] LABS: Hematocrit 34.9 % (37.0-47.0); Hemoglobin 10.7 g/dl (12.0-16.0); Imm Gran Abs Auto 0.02 X10*3/uL (0.00-0.03); Imm Gran Pct Auto 0.3 % (0.0-0.4); Lymphocytes Absolute Auto 2.2 X10*3/uL (1.2-4.9); Mean Corpuscular HGB Conc 30.7 g/dl (31.0-35.0); Mean Corpuscular Hemoglobin 25.1 pg (27.0-33.0); Mean Corpuscular Volume 81.7 fL (80.0-98.0); NRBC Abs Auto 0.000 X10*3/uL (0.0-0.012); NRBC Pct Auto 0.0 /100WBC (0.0-0.2); Platelet Count 513 X10*3/uL (160-400); Red Blood Count 4.27 X10*6/uL (4.20-5.50); White Blood Count 7.7 X10*3/uL (4.8-10.8)
[2024-12-24 15:40] LABS: Alanine Aminotransferase 18 U/L (0-31); Albumin Level 4.1 g/dL (3.5-5.0); Alkaline Phosphatase 82 U/L (39-117); Anion Gap 12 (12-20); Aspartate Amino Transferase 27 U/L (5-31); Blood Urea Nitrogen 10 mg/dL (9-16); Calcium 9.0 mg/dL (8.4-10.2); Carbon Dioxide 25 mmol/L (22-29); Chloride 102 mmol/L (96-108); Estimated Glomerular Filt Rate > 60; Iron 24 mcg/dL (30-160); Magnesium 2.4 mg/dL (1.6-2.6); Percent Iron Saturation 8 % (15-50); Potassium 4.5 mmol/L (3.3-5.1); Sodium 134 mmol/L (135-145); Total Iron Binding Capacity 314 mcg/dL (228-428); Total Protein 7.1 g/dL (6.5-8.0); Unsaturated Iron Binding 290 ug/dL; Uric Acid 5.7 mg/dL (2.4-5.7)
[2024-12-24 15:59] LABS: Free T4 (Free Thyroxine) 0.85 ng/dL (0.71-1.85); Thyroid Stimulating Hormone 0.89 uIU/mL (0.32-4.0)
[2024-12-24 16:04] LABS: Folate 5.4 ng/mL (> or = 4.0); Vitamin B12 208 pg/mL (200-900)
[2024-12-25 06:46] LABS: Syphilis Screen Nonreactive (Nonreactive)
[2024-12-25 06:59] LABS: HIV Num 1 0.06 S/CO (0.00-0.99)
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
--- OUTSIDE RECORDS SUMMARY | 2024-12-25 10:30 | XMS_ITS | Encounter Summary ---
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) drug therapy Social History Tobacco Use Types Packs/Day Years [...] PM EST [facility] [phone] Rosemary Vega MD [address] [place] [address] 01/06/2025 4:00 PM EST Consult Bariatric Surgery - [place] [address] [phone] Feng Mckeon MD [address] [facility] [place] [address] 01/14/2025 10:45 AM EST [facility] [phone] Luis Berry PA [address] [place] [address] 03/18/2025 2:00 PM EST Office Visit Internal Medicine - [address] [phone] Rosemary Vega MD [address] [place], [place] 04/29/2025 11:30 AM EDT Office Visit Internal Medicine - [facility] [address] [place], [place] [phone] Luis Berry PA [address] [place], [place] documented as of this encounter Procedures Procedure Name Priority Date/Time Associated Diagnosis Comments LIPID PANEL WITH REFLEX TO DIRECT LDL Routine 11/06/2024 7:00 AM EDT Other penitentiary (current) drug therapy HEMOGLOBIN A1C Routine 11/06/2024 7:00 AM EDT Other ad terminal makeup operator (current) drug therapy GLUCOSE, RANDOM Routine 11/06/2024 7:00 AM EDT Other penitentiary (current) drug therapy documented in this encounter Results * Hemoglobin A1c (11/06/2024 7:00 AM EDT) Hemoglobin A1C 5.9 <6.5 % LAB CHEMISTRY METHOD 11/06/2024 10:07 PM EDT [facility] Mean Bld Glu Estim. 123 mg/dL LAB CHEMISTRY METHOD 11/06/2024 10:07 PM EDT [facility] Blood Venous blood specimen / Unknown Venipuncture / Unknown 11/06/2024 7:00 AM EDT 11/06/2024 10:16 AM EDT us Michelle Watkins NP LAB BLOOD ORDERABLES Final Resul t [facility] [address] [place] [address], * Glucose, random (11/06/2024 7:00 AM EDT) Glucose 90 70 - 100 mg/dL LAB CHEMISTRY METHOD 11/06/2024 11:32 AM [facility] Blood Venous blood specimen / Unknown Venipuncture / Unknown 11/06/2024 7:00 AM EDT 11/06/2024 10:16 AM EDT Michelle Watkins NP LAB BLOOD ORDERABLES Final Resul t [facility] [address] [place] [address], * (ABNORMAL) Lipid panel with reflex to direct LDL (11/06/2024 7:00 AM EDT) Cholesterol 190 0 - 200 mg/dL LAB CHEMISTRY METHOD 11/06/2024 11:33 AM [facility] Triglycerides 111 0 - 150 mg/dL LAB CHEMISTRY METHOD 11/06/2024 11:33 AM [facility] HDL 53 >=40 mg/dL LAB CHEMISTRY METHOD 11/06/2024 11:33 AM [facility] LDL Calculated 115(H) 0 - 100 mg/dL LAB CHEMISTRY METHOD 11/06/2024 11:33 AM [facility] Comment:Estimated LDL Calcul ated using equation: Total cholesterol - HDL cholesterol - (Triglycerides/5) VLDL Cholesterol Humberto 22.2 mg/dL LAB CHEMISTRY METHOD 11/06/2024 11:33 AM [facility] Non HDL Chol. (LDL+VLDL) 137 <145 mg/dL LAB CHEMISTRY METHOD 11/06/2024 11:33 AM [facility] Chol/HDL Ratio 3.6 0.0 - 4.4 LAB CHEMISTRY METHOD 11/06/2024 11:33 AM [facility] Blood Venous blood specimen / Unknown Venipuncture / Unknown 11/06/2024 7:00 AM EDT 11/06/2024 10:16 AM EDT us Michelle Watkins PHARMACY SERVICES DIRECTOR LAB BLOOD ORDERABLES Final Resul t [facility] [address] [place] [address], documented in this encounter Visit Diagnoses Diagnosis Other penitentiary (current) drug therapy documented in this encounter Care Teams Lockstitch Sleeve Maker Relationship Specialty Start Date End Date Rosemary Vega MD [address] [facility] [place] PCP - General Internal Medicine 10/14/24 documented as of this encounter
--- OUTSIDE RECORDS SUMMARY | 2024-12-25 10:31 | XMS_ITS | Encounter Summary ---
Author Organization [facility] Address [address] [place] [address] Care Team Providers Care Critical Care Rn Name Role Phone Rosemary Vega MD Primary Care Provider [phone] Reason for Visit * Reason Onset Date Comments Faxed Order 12/23/2024 [facility] Encounter Details Date Type Department Care Team ([facility] Contact Info) Description 12/23/2024 Telephone Internal Medicine - [facility] [address] [place], [place] [phone] Rosemary Vega MD [address] [place] [address] Social History Tobacco Use Types Packs/Day Years [...] of Assessment Author No 08/22/2024 9:22 AM EDKostas Rowell RN * Because of a physical, mental, [...] Kostas Peralta RN documented in this encounter Progress Notes * Eloise Allison - 12/23/2024 11:07 AM EST Orders from [facility] placed in Rosemary Vega MD bin. Please complete and fax back to [phone].Thank you. documented in this encounter Plan of Treatment Upcoming Encounters Date Type Department Care Team (Late st Contact Info) Description 01/06/2025 1:30 PM EST Office Visit Internal Medicine - [facility] [address] [place], [place] [phone] Rosemary Vega MD [address] [place], [place] 01/06/2025 4:00 PM EST Consult Bariatric Surgery - [address] [place] [phone] Feng Mckeon MD [address] [place] [address] 01/14/2025 10:45 AM EST Office Visit Internal [facility] - [address] [phone] Luis Berry PA [address] [place], [place] 03/18/2025 2:00 PM EST Office Visit Internal [facility] - [address] [phone] Rosemary Vega MD [address] [place] [address] 04/29/2025 11:30 AM EDT Office Visit Internal [facility] - [address] [place], [place] [phone] Luis eBrry PA [address] [place] [address] documented as of this encounter Visit Diagnoses Not on filedocumented in this encounter Care Teams Critical Care Rn Relationship Specialty Start Date End Date Rosemary Vega MD [facility] [place] PCP - General Internal Medicine 10/14/24 documented as of this encounter
--- OUTSIDE RECORDS SUMMARY | 2024-12-25 10:31 | XMS_ITS | Clinical Summary ---
Author Organization [facility] Address [address] [place] [address] Care Team Providers Care Manufacturing Operator Name Role Phone Luis Berry Primary Care Provider [phone] Allergies Active Allergy Reactions Criticality Noted Date Comments Aspirin Peptic Ulcer Disease 12/07/2024 Sulfa (Sulfonamide Antibiotics) Rash,Vomiting 1 02/07/2024 Bupropion Hcl Seizure High 12/07/2024 Medications albuterol (PROAIR HFA,VENTOLIN HFA) 90 mcg inhaler Inhale 1-2 puffs (90-180 mcg total) by mouth every 6 hours as needed for wheezing or shortness of breath. 18 g 12/14/19 25 025 Active baclofen (LIORESAL) 10 mg tablet Take 2 tablets (20 mg total) by mouth 2 times a day. 60 tablet 1 12/14/19 25 Active cloNIDine (CATAPRES) 0.2 mg tablet Take 1 tablet (0.2 mg total) by mouth nightly. 15 tablet 1 12/14/19 25 Active gabapentin (NEURONTIN) 800 mg tablet Take 2 tablets (1,600 mg total) by mouth every night. 30 tablet 1 12/14/19 25 025 Active guanFACINE ER (INTUNIV ER) 2 mg tablet Take 1 tablet (2 mg total) by mouth nightly. Pt uses extended release 15 tablet 1 12/14/19 25 Active hydrOXYzine HCL (ATARAX) 25 mg tablet Take 1 tablet (25 mg total) by mouth daily as needed for anxiety. 15 tablet 1 12/14/19 25 Active lamoTRIgine (LaMICtal) 200 mg tablet Take 1.5 tablets (300 mg total) by mouth nightly. 22 tablet 1 12/14/19 25 Active lurasidone (LATUDA) 60 mg tablet Take 1 tablet (60 mg total) by mouth daily with dinner. 15 tablet 1 12/14/[address] (PROTONIX) 20 mg tablet Take 1 tablet (20 mg total) by mouth once a day. 15 tablet 1 12/14/19 25 Active prazosin (MINIPRESS) 1 mg capsule Take 7 capsules (7 mg total) by mouth nightly. 105 capsule 1 12/14/19 25 Active SUMAtriptan (IMITREX) 50 mg tablet Take 1 tablet (50 mg total) by mouth daily as needed for migraine. May repeat dose once in 2 hours if no relief. Do not exceed 2 doses in 24 hours. 9 tablet 1 12/14/19 Active cloNIDine (CATAPRES) 0.2 mg tablet Take 0.2 mg by mouth 3 times a day as needed for high blood pressure. Discontinued(St op Taking at Discharge) lamoTRIgine (LaMICtal) 200 mg tablet Take 325 mg by mouth once a day. PT TAKES THIS MED AT BEDTIME NOT IN THE AM. Discontinued prazosin (MINIPRESS) 5 mg capsule Take 7 mg by mouth nightly. Discontinued(St op Taking at Discharge) lurasidone (LATUDA) 60 mg tablet Take 60 mg by mouth every night. Discontinued(St op Taking at Discharge) baclofen (LIORESAL) 10 mg tablet Take 20 mg by mouth 2 times a day. Discontinued guanFACINE ER (INTUNIV ER) 2 mg tablet Take 2 mg by mouth nightly. Pt uses extended release Discontinued gabapentin (NEURONTIN) 800 mg tablet Take 800 mg by mouth every night. Discontinued(St op Taking at Discharge) omeprazole (PriLOSEC) 20 mg capsule Take 20 mg by mouth once a day. Discontinued(St op Taking at Discharge) SUMAtriptan (IMITREX) 50 mg tablet Take 50 mg by mouth daily as needed for migraine. May repeat dose once in 2 hours if no relief. Do not exceed 2 doses in 24 hours. Discontinued(St op Taking at Discharge) albuterol (PROAIR HFA,VENTOLIN HFA) 90 mcg inhaler Inhale 1-2 puffs by mouth every 6 hours as needed for wheezing or shortness of breath. 025 Discontinued Active Problems Problem Noted Date Diagnosed Date Asthma 12/09/2024 Assessment & Plan (12/09/2024 9:37 AM EST): - Continue albuterol PRN Peptic ulcer disease 12/09/2024 Assessment & Plan (12/09/2024 9:37 AM EST): - Continue Protonix 20 mg daily - Continue TUMS PRN Mood disorder 12/07/2024 Assessment & Plan (12/12/2024 2:14 PM EST): Ms. Karyn Herring is a 44-year-old female with a past history of bipolar disorder. Presented to [facility] ER with altered mental status, intubated due to concern about ability to maintain airway and admitted to ICU for acute encephalopathy concerning for toxic ingestion. Later reported that she had taken 10-15 tablets of clonidine for anxiety, denied suicide attempt. Patient was previously hospitalized at [facility] last month. Unclear what caused decompensation or failure to recall by pt. She appears anxious, however no signs of pranav noted. Continued on prior outpatient medication regimen. Per collateral from outpatient prescriber, significant concerns about patient's self-care and safety with managing medications, concern for recent episodes of dissociation. She would benefit from increased community supports including VNA to help with medication management, Plan to refer for VNA services and [facility] application to be completed. Patient signed 3-day notice expiring 12/16. Plan for dc 12/13 Plan: - Continue gabapentin 1,600 mg nightly - Continue Latuda 60 mg with dinner - Continue guanfacine 2 mg nightly - Continue Lamictal 325 mg nightly - Continue prazosin 7 mg nightly - cont clonidine 0.2 mg nightly - cont atarax 25 mg daily PRN for anxiety Encounters Date Type Department Care Team Description 12/13/2024 Plan of Care Documentation [facility] [address] [place] [address] 12/10/2024 Plan of Care Documentation [facility] [address] [place] [address] 12/07/2024 5:29 PM EDT - 12/13/2024 10:32 AM EST Hospital Encounter [facility] [address] [place] [address] Olegario Wilson MD Adelayo, Adeola Y, MD Discharge Disposition: Home or Self Care () from Last 3 Months Social History Tobacco Use Types Packs/Day Years Used Date Smoking Tobacco: Former Cigarettes 0 Q uit: 02/2020 Passive Smoke Exposure: Past Tobacco Cessation:Counseling Given: Not Answered Comments No Sex and Gender Information Value Date Recorded Sex Assigned at Female 12/09/2024 1:12 PM EST Legal Sex Female 1:42 PM EDT Gender Identity Not on file Sexual Orientation Not on file Last Filed Vital Signs Vital Sign Reading Time Taken Comments Blood Pressure 130/82 12/13/2024 8:08 AM EST Pulse 85 12/13/2024 8:08 AM EST Temperature 35.8 C (96.5 F) 12/13/2024 8:08 AM EST Respiratory Rate 16 12/13/2024 8:08 AM EST Oxygen Saturation 96% 12/13/2024 8:08 AM EST Inhaled Oxygen Concentration - - Weight 113.4 kg (250 lb) 12/07/2024 5:43 PM EDT Height 158 cm (5' 2.21 ) 12/07/2024 5:43 PM EDT Body Mass Index 45.42 12/07/2024 5:43 PM EDT Plan of Treatment Health Maintenance Due Date Last Done Comments Cervical Cancer Screening 1980 HIV Screening 1980 HPV and Pap Smear 1980 Hepatitis C Screening 1980 Pap Smear 1980 Varicella Vaccines (1 of 2 - 13+ 2-dose series) 1993 Mammogram 2020 Alcohol/Substance Use Screening 02/07/2024 Depression Screening and Follow-Up 02/07/2024 Social Drivers of Health Chanelle ual Screening 02/07/2024 COVID-19 Vaccine (2024- 6 season) 2024 11/14/2023, 12/02/2021, 12/26/2020, Additional history exists Diabetes Screening 11/07/2027 11/06/2024, 10/29/2024 DTaP,Tdap,and Td Vaccines (7 - Td or Tdap) 12/29/2028 12/29/2018, 08/21/1995, 09/10/1985, Additional history exists Hepatitis B Vaccines Completed 04/23/2020, 10/02/1998, 07/15/1998, Additional history exists Pneumococcal Vaccine: Pediat justino (0-5 Years) and At-Risk Patients (6-50 Years) Completed 03/24/2022 Influenza Vaccine Completed 10/29/2024, , 11/18/2022, Additional history exists Procedures * Due to [place] [employer] law, this organization might not be sharing negative HIV tests. Procedure Name Priority Date/Time Associated Diagnosis Comments AMB EXTERNAL EKG, OUTSIDE RESULT 12/02/2024 from Last 3 Months Results * Due to [place] [employer] law, this organization might not be sharing negative HIV tests. * EKG, Outside Results (12/02/2024) 12/02/2024 us Onbase Scan [facility] AMB EXTERNAL RESULT PROCEDURE S Final Result from Last 3 Months Insurance [facility] Advance Directives * Presumed Full Code (Latest Code Status on File) Date Activated Date Inactivated Comments 12/07/2024 5:59 PM 12/13/2024 12:35 PM Care Teams Manufacturing Operator Relationship Specialty Start Date End Date Luis Berry PA [address] [place] [id number] PCP - General Internal Medicine 12/01/24
--- OUTSIDE RECORDS SUMMARY | 2024-12-25 10:31 | XMS_ITS | Clinical Summary ---
Author Organization [place] [address] [address] [facility] Building Address [address] [place] [phone] Phone Care Team Providers Care Machine Mover Name Role Phone Rosemary Vega MD Primary Care Provider [phone] Allergies Active Allergy Reactions Criticality Noted Date Comments Aspirin GI intolerance 04/20/2018 Has healed ulcer Bupropion 11/26/2018 seizure Sulfa (Sulfonamide Antibiotics) Wheezing 04/20/2018 Other Reaction(s): Rash/Dermatitis Medications gabapentin (NEURONTIN) 800 mg tablet Take 2 tablets (1,600 mg total) by mouth. at bedtime 11/16/19 24 Active lurasidone (LATUDA) 60 mg tablet Take 1 tablet (60 mg total) by mouth 1 (one) time each day with breakfast. 12/07/19 24 Active cloNIDine (CATAPRES) 0.1 mg tablet Take 2 tablets (0.2 mg total) by mouth 2 (two) times a day. 11/14/19 24 Active prazosin (MINIPRESS) 5 mg capsule Take 1 capsule (5 mg total) by mouth. at bedtime 11/23/19 24 Active lamoTRIgine (LaMICtal) 200 mg tablet Take 1 tablet (200 mg total) by mouth at bedtime. 11/11/19 24 Active lamoTRIgine (LaMICtal) 100 mg tablet Take 1 tablet (100 mg total) by mouth at bedtime. Total 300 mg Active guanFACINE (INTUNIV) 2 mg 24 Hour ER tablet Take 1 tablet (2 mg total) by mouth 1 (one) time each day. 12/22/19 24 Active norethindrone (HALLE,MARCOS,HEA THER,MICRONOR) 0.35 mg tablet Take 1 tablet (0.35 mg total) by mouth 1 (one) time each day. 90 tablet 3 04/19/19 25 2025 Active ondansetron ODT (ZOFRAN-ODT) 4 mg disintegrating tablet DISSOLVE 1 TABLET UNDER THE TONGUE EVERY TWELVE HOURS NEEDED FOR NAUSEA OR VOMITING 14 tablet 2 10/03/19 25 Active fluticasone propionate (FLONASE) 50 mcg/actuation nasal spray Administer 2 sprays into each nostril 1 (one) time each day. Shake before each use. 48 g 10/25/19 25 Active lamoTRIgine (LaMICtal) 25 mg tablet Take 1 tablet (25 mg total) by mouth every other day. 10/17/19 25 Active prazosin (MINIPRESS) 2 mg capsule Take 1 capsule (2 mg total) by mouth at bedtime. 10/11/19 25 Active SUMAtriptan (IMITREX) 50 mg tablet Take 1 tablet (50 mg total) by mouth 1 (one) time if needed for migraine. May repeat dose once in 2 hours if no relief. Do not exceed 2 doses in 24 hours. 9 tablet 5 10/30/19 25 2025 Active baclofen (LIORESAL) 20 mg tablet Take 1 tablet (20 mg total) by mouth 2 (two) times a day. 60 each 1 10/30/19 25 2025 Active omeprazole (PriLOSEC) [address] capsule Take 1 capsule (20 mg total) by mouth 1 (one) time each day. Do not crush or chew. 90 capsule 1 10/30/19 25 Active budesonide (PULMICORT) 180 mcg/actuation inhaler Inhale 1 puff by mouth 2 (two) times a day. Rinse mouth with water after use to reduce aftertaste and incidence of candidiasis. Do not swallow. 3 each 1 10/30/19 25 2025 Active albuterol HFA (PROAIR HFA ; PROVENTIL HFA ; VENTOLIN HFA) 90 mcg/actuation inhaler Inhale 2 puffs by mouth every 4 (four) hours if needed for wheezing. 24 g 1 10/30/19 25 Active propranoloL (INDERAL) 20 mg tablet TAKE 1 TABLET BY MOUTH TWICE A DAY 56 tablet 4 12/04/19 25 Active propranoloL (INDERAL) 20 mg tablet TAKE 1 TABLET BY MOUTH TWICE A DAY 180 tablet 1 07/23/19 25 2024 Discontinued Active Problems Problem Noted Date Diagnosed Date Bimalleolar ankle fracture, right, closed, initial encounter 01/13/2024 Morbid obesity with BMI of 4 5.0-49.9, adult ([facility] V24, [facility] V28) 11/22/2023 Depressive disorder 04/21/2023 Asthma 05/03/2021 Insomnia 04/30/2021 Snoring 05/27/2020 Overview (11/22/2023): 05/2020 Home Sleep Study did not reveal sleep apnea or nocturnal hypoxia. Seizure ([facility] V24, [facility] V28) 08/04/2018 Dysmenorrhea 07/24/2018 Bipolar affective disorder, manic ([facility] V24, [facility] V28) 04/20/2018 [facility] (11/22/2023): [facility] C[facility]ac [facility] 04/20/2018 Overview (11/22/2023): Dx endoscopically by alia 2010. Hypercholesteremia 04/20/2018 PTSD (post-traumatic stress disorder) 04/20/2018 PUD (peptic ulcer disease) 04/20/2018 Overview (11/22/2023): From naproxen, stomach, healed per pt Resolved Problems Problem Noted Date Diagnosed Date Resolved Date Ankle fracture, bimalleolar, closed 01/13/2024 01/18/2024 Encounters Date Type Department Care Team Description 12/23/2024 Telephone Internal Medicine - [facility] [address] [place] [phone] Rosemary Vega MD 12/18/2024 Telephone Internal Medicine - [facility] [address] [place] [phone] Rosemary Vega MD 12/18/2024 Telephone Internal Medicine - [address] [phone] Rosemary Vega MD 11/06/2024 Lab Requisition [facility] - Main Lab [address] [place] [address] Michelle Watkins NP 11/06/2024 Lab Requisition [facility] Lab [address] [place] [address] Michelle Watkins NP Other center rep (current) drug therapy 10/29/2024 9:45 AM EDT Office Visit Internal Medicine - [address] [phone] Luis Berry PA Class 3 obesity (Primary Dx); Mild intermittent asthma without complication; Bipolar affective disorder, current episode manic, current episode severity unspecified (CMS/HCC V24, CMS/HCC V28); Insomnia, unspecified type; PTSD (post-traumatic stress disorder); PUD (peptic ulcer disease); Depressive disorder; Immunization due from Last 3 Months Immunizations Immunization Administration Dates Next Due DTaP (Infanrix) 6wks to less than 7yo ,04/19/1982,04/07/1981,1980,1980 [id number]-MBD-YQV (Pentacel) 2mo to less than 5yo 10/16/1984 Hepatitis B (Efsnwku-C-Rytqe , Recombivax HB-Adult) 19yo and older 04/23/2020 Hepatitis B Pediatric (Enger ix B; Recombivax HB) to less than 20 yo 10/02/1998,07/15/1998,09/15/1997 IPV Inactivated polio (Ipol) 6wks and older 09/10/1985,04/19/1982,04/07/1981,1980,1980 Influenza Quadravalent, MDCK , 0.5ml, preservative free (Flucelvax) 6mo and older 11/18/2022 Influenza trivalent, 0.5mL, preservative free (Fluarix; FluLaval; Fluzone) ages 6mo and older (Afluria) 3 years and older 09/30/2017 Influenza trivalent, MDCK, 0 .5mL, preservative free (Flucelvax) 6mo and older 10/29/2024 MMR, measles mumps and rubel la Live (Priorix; M-M-R II) 12mo and older 09/24/1992,02/11/1982 Moderna SARS-CoV-2 COVID-19, mRNA, LNP-S, preservative free 03/23/2020 Pneumococcal conjugate 20 va lent (Prevnar 20, PCV 20) 2mo and older 03/24/2022 Td Tetanus diptheria (Tdvax) 7yo and older 08/21/1995 Tdap Tetanus diptheria acell ular pertussis (Boostrix; Adacel) 7yo and older 12/29/2018 Surgical History Surgery Date Site/Laterality Comments OTHER SURGICAL HISTORY PROCEDURE: DENIES PREVIOUS SURGERY Medical History Medical History Date Comments Panic attack PTSD (post-traumatic stress disorder) Bipolar 1 disorder ([facility] V24, [facility] V28) Family History Medical History Relation Name Comments Heart failure Father Alcohol abuse Mother Arthritis Mother Heart attack Paternal Grandmother Depression Sister 1 Schizophrenia Uncle suicide Breast cancer Neg Hx Relation Name Status Comments Father Maternal Grandfather Maternal Grandmother Mother Paternal Grandfather Paternal Grandmother Sister 1 Alive Sister 2 Alive Sister 3 Alive Uncle Social History Tobacco Use Types Packs/Day Years Used Date Smoking Tobacco: Former Cigarettes 1 15 0 02/06/2005 - 02/07/2020 Smokeless Tobacco: Never Tobacco Cessation:Counseling Given: Not Answered Alcohol Use Standard Drinks/Week Comments Yes 0 [...] Orientation Straight 03/15/2024 2: 00 PM EST Obstetrics History Last Filed Vital Signs Vital Sign Reading Time Taken Comments Blood Pressure 134/72 10/29/2024 9:54 AM EDT Pulse 106 10/29/2024 9:54 AM EDT Temperature 37.2 C (99 F) 08/23/2024 3:40 PM EDT Respiratory Rate 20 08/23/2024 6:06 PM EDT Oxygen Saturation 100% 08/23/2024 6:06 PM EDT Inhaled Oxygen Concentration - - Weight 119 kg (263 lb) 10/29/2024 9:54 AM EDT Height 160 cm (5' 3 ) 08/23/2024 12:08 PM EDT Body Mass Index 46.59 08/23/2024 12:08 PM EDT Plan of Treatment Upcoming Encounters Date Type Department Care Team (Late st Contact Info) Description 01/06/2025 1:30 PM EST Office Visit Internal Medicine - [address] [phone] Rosemary Vega MD [address] [place] [address] 01/06/2025 4:00 PM EST Consult Bariatric Surgery - [place] [address] [place] [phone] Feng [facility]keon [facility] [address] [facility] [address] 01/14/2025 10:45 AM EST Office Visit Internal Medicine - [address] [phone] Luis Berry PA [address] [place] [address] 03/18/2025 2:00 PM EST Office Visit Internal Medicine - [address] [phone] Rosemary Vega MD [address] [place] [address] 04/29/2025 11:30 AM EDT Office Visit Internal Medicine - [facility] [address] [place] [address] Luis Berry PA [address] [place] [address] Health Maintenance Due Date Last Done Comments HPV Vaccines (1 - 3-dose SCDM series) 09/17/2007 Social Influencers of Health Screening 01/15/2022 Depression Screening 02/07/2024 COVID-19 Vaccine ( season) 2024 11/14/2023, 12/02/2021, 12/26/2020, Additional history exists Breast Cancer Screening 05/11/2025 05/12/19, 05/12/2023, 12/06/2021, Additional history exists DTaP,Tdap,and Td Vaccines (8 - Td or Tdap) 12/29/2028 12/29/2018, 08/21/1995, 09/10/1985, Additional history exists Cervical Cancer Screening: HPV 04/18/2029 04/18/2024, 07/24/2018 Cholesterol Screening (Lipid Panel) 11/06/2029 11/06/2024, 10/29/2024, 07/25/2022 RSV Immunization Adult Patients (1 - 1-dose 75+ series) 09/17/2055 HIB Vaccines Completed 10/16/1984, 10/16/1984 IPV Vaccines Completed 09/10/1985, 10/07, 04/19/1982, Additional history exists MMR Vaccines Completed 09/24/1992, 02/11/1982 Hepatitis B Vaccines Completed 04/23/2020, 10/02/1998, 07/15/1998, Additional history exists Pneumococcal Vaccine: Pediatrics (0 to 5 Years) and At-Risk Patients (6 to 49 Years) Completed 03/24/2022 Influenza Vaccine Completed 10/29/2024, , 11/18/2022, Additional history exists HIV Screening Discontinued Hepatitis A Vaccines Aged Out No long er eligible based on patient's age to complete this topic Hepatitis C Screening Discontinued Meningococcal ACWY Vaccine Aged Out N o longer eligible based on patient's age to complete this topic Meningococcal B Vaccine Aged Out No l onger eligible based on patient's age to complete this topic RSV Immunization Patients Under 20 months Aged Out No longer eligible based on patient's age to complete this topic Varicella Vaccines Aged Out No longer eligible based on patient's age to complete this topic Medical Devices Implanted Type Area Process Controls Technician Device Identifier Shelf Expiration Date Model / Serial / Lot [id number] Nl Screw Implanted:Qty: 1 on 01/15/2024 by Vern Call MD at [facility] Right: Ankle [employer] [id number] / N/A / N/A Procedures Procedure Name Priority Date/Time Associated Diagnosis Comments HEMOGLOBIN A1C Routine 11/06/2024 7:00 AM EDT Other center rep (current) drug therapy GLUCOSE, RANDOM Routine 11/06/2024 7:00 AM EDT Other center rep (current) drug therapy LIPID PANEL WITH REFLEX TO DIRECT LDL Routine 11/06/2024 7:00 AM EDT Other center rep (current) drug therapy CBC WITH AUTO DIFFERENTIAL Routine 10/29/2024 10:24 AM EDT Bipolar I disorder, most recent episode (or current) manic, moderate (CMS/HCC V24, CMS/HCC V28) Generalized anxiety disorder CBC AND DIFFERENTIAL Routine 10/29/2024 10:24 AM EDT Bipolar I disorder, most recent episode (or current) manic, moderate (CMS/HCC V24, CMS/HCC V28) Generalized anxiety disorder THYROID STIMULATING HORMONE Routine 10/29/2024 10:24 AM EDT Bipolar I disorder, most recent episode (or current) manic, moderate (CMS/HCC V24, CMS/HCC V28) Generalized anxiety disorder VITAMIN B12 Routine 10/29/2024 10:24 AM EDT Bipolar I disorder, most recent episode (or current) manic, moderate (CMS/HCC V24, CMS/HCC V28) Generalized anxiety disorder HEMOGLOBIN A1C Routine 10/29/2024 10:24 AM EDT Class 3 obesity LIPID PANEL WITH REFLEX TO DIRECT LDL Routine 10/29/2024 10:24 AM EDT Class 3 obesity COMPREHENSIVE METABOLIC PANEL Routine 10/29/2024 10:24 AM EDT Class 3 obesity HPV WITH REFLEX GENOTYPE Routine 04/18/2024 11:40 AM EDT Encounter for annual physical examination excluding gynecological examination in a patient older than 17 years DIAGNOSTIC MAMMOGRAPHY INCLUDING CAD BILATERAL Routine 05/12/2023 2:50 PM EDT Mammographic microcalcification found on diagnostic imaging of breast from Last 3 Months or Most Recently Relevant to Health Maintenance Results * (ABNORMAL) Lipid panel with reflex to direct LDL (11/06/2024 7:00 AM EDT) Only the most recent of2 resultswithin the time period is included. Cholesterol 190 0 - 200 mg/dL LAB CHEMISTRY METHOD 11/06/2024 11:33 AM [facility] Triglycerides 111 0 - 150 mg/dL LAB CHEMISTRY METHOD 11/06/2024 11:33 AM [facility] HDL 53 >=40 mg/dL LAB CHEMISTRY METHOD 11/06/2024 11:33 AM [facility] LDL Calculated 115(H) 0 - 100 mg/dL LAB CHEMISTRY METHOD 11/06/2024 11:33 AM [facility] Comment:Estimated LDL Calcul ated using equation: Total cholesterol - HDL cholesterol - (Triglycerides/5) VLDL Cholesterol Humberto 22.2 mg/dL LAB CHEMISTRY METHOD 11/06/2024 11:33 AM [facility] Non HDL Chol. (LDL+VLDL) 137 <145 mg/dL LAB CHEMISTRY METHOD 11/06/2024 11:33 AM [facility] Chol/HDL Ratio 3.6 0.0 - 4.4 LAB CHEMISTRY METHOD 11/06/2024 11:33 AM EDT [facility] Blood Venous blood specimen / Unknown Venipuncture / Unknown 11/06/2024 7:00 AM EDT 11/06/2024 10:16 AM EDT us Michelle Watkins NP LAB BLOOD ORDERABLES Final Resul t Performing Organization Address [facility] de Phone Number [facility] [address] [place] [address], [place] [phone] * Hemoglobin A1c (11/06/2024 7:00 AM EDT) Only the most recent of2 resultswithin the time period is included. Hemoglobin A1C 5.9 <6.5 % LAB CHEMISTRY METHOD 11/06/2024 10:07 PM EDT [facility] Mean Bld Glu Estim. 123 mg/dL LAB CHEMISTRY METHOD 11/06/2024 10:07 PM EDT [facility] Blood Venous blood specimen / Unknown Venipuncture / Unknown 11/06/2024 7:00 AM EDT 11/06/2024 10:16 AM EDT us Michelle Watkins NP LAB BLOOD ORDERABLES Final Resul t Performing Organization Address [facility] de Phone Number [facility] [address] [place] [address], [place] [phone] * Glucose, random (11/06/2024 7:00 AM EDT) Glucose 90 70 - 100 mg/dL LAB CHEMISTRY METHOD 11/06/2024 11:32 AM EDT [facility] Blood Venous blood specimen / Unknown Venipuncture / Unknown 11/06/2024 7:00 AM EDT 11/06/2024 10:16 AM EDT us Michelle Watkins NP LAB BLOOD ORDERABLES Final Resul t [facility] [address] [place] [address], * (ABNORMAL) CBC auto differential (10/29/2024 10:24 AM EDT) [facility] Signature WBC 6.7 4.8 - 10.8 K/mcL LAB HEMETOLOGY METHOD 10/29/2024 12:24 PM EDT [facility] RBC 4.60 3.80 - 4.80 M/mcL LAB HEMETOLOGY METHOD 10/29/2024 12:24 PM EDT [facility] Hemoglobin 12.2 11.5 - 16.0 g/dL LAB HEMETOLOGY METHOD 10/29/2024 12:24 PM EDT [facility] Hematocrit 39.8 35.0 - 47.0 % LAB HEMETOLOGY METHOD 10/29/2024 12:24 PM EDT [facility] MCV 87.1 79.0 - 98.0 FL LAB HEMETOLOGY METHOD 10/29/2024 12:24 PM EDT [facility] MCH 26.7(L) 27.0 - 32.0 pcg LAB HEMETOLOGY METHOD 10/29/2024 12:24 PM EDT [facility] MCHC 30.7(L) 32.0 - 37.0 g/dL LAB HEMETOLOGY METHOD 10/29/2024 12:24 PM EDT [facility] RDW 16.5(H) 11.0 - 15.0 % LAB HEMETOLOGY METHOD 10/29/2024 12:24 PM EDT [facility] Platelets 559(H) 130 - 400 K/mcL LAB HEMETOLOGY METHOD 10/29/2024 12:24 PM EDT [facility] MPV 9.4 7.0 - 11.0 FL LAB HEMETOLOGY METHOD 10/29/2024 12:24 PM EDT [facility] NRBC 0.0 <1.0 % LAB HEMETOLOGY METHOD 10/29/2024 12:24 PM [facility] NRBC Absolute 0.00 <0.10 K/mcL LAB HEMETOLOGY METHOD 10/29/2024 12:24 PM [facility] Neutrophils Relative 57.5 % LAB HEMETOLOGY METHOD 10/29/2024 12:24 PM [facility] Lymphocytes Relative 31.9 % LAB HEMETOLOGY METHOD 10/29/2024 12:24 PM [facility] Monocytes Relative 3.6 % LAB HEMETOLOGY METHOD 10/29/2024 12:24 PM [facility] Eosinophils Relative 6.0 % LAB HEMETOLOGY METHOD 10/29/2024 12:24 PM [facility] Basophils Relative 0.7 % LAB HEMETOLOGY METHOD 10/29/2024 12:24 PM [facility] Immature Granulocytes Relative 0.3 % LAB HEMETOLOGY METHOD 10/29/2024 12:24 PM [facility] Neutrophils Absolute 3.86 1.50 - 7.00 K/mcL LAB HEMETOLOGY METHOD 10/29/2024 12:24 PM [facility] Lymphocytes Absolute 2.14 1.00 - 5.00 K/mcL LAB HEMETOLOGY METHOD 10/29/2024 12:24 PM [facility] Monocytes Absolute 0.24 0.20 - 1.00 K/mcL LAB HEMETOLOGY METHOD 10/29/2024 12:24 PM [facility] Eosinophils Absolute 0.40 0.00 - 0.50 K/mcL LAB HEMETOLOGY METHOD 10/29/2024 12:24 PM [facility] Basophils Absolute 0.05 0.00 - 0.20 K/mcL LAB HEMETOLOGY METHOD 10/29/2024 12:24 PM EDT [facility] Immature Granulocytes Absolute 0.02 0.00 - 0.03 K/mcL LAB HEMETOLOGY METHOD 10/29/2024 12:24 PM EDT [facility] Blood Venous blood specimen / Unknown Venipuncture / Unknown 10/29/2024 10:24 AM EDT 10/29/2024 10:24 AM EDT Nena Hastings NP LAB BLOOD ORDERABLES Final Re sult Performing Organization Address [facility]/ZIP Co de Phone Number [facility] [address] [place] [address], [place] [phone] * Thyroid stimulating hormone (10/29/2024 10:24 AM EDT) TSH 1.93 0.40 - 4.00 mcIU/mL LAB CHEMISTRY METHOD 10/29/2024 4:25 PM EDT [facility] Blood Venous blood specimen / Unknown Venipuncture / Unknown 10/29/2024 10:24 AM EDT 10/29/2024 10:24 AM EDT us Nena Hastings NP LAB BLOOD ORDERABLES Final Re sult Performing Organization Address [facility] Co de Phone Number [facility] [address] [place] [address], [place] [phone] * Vitamin B12 (10/29/2024 10:24 AM EDT) Vitamin B-12 277 250 - 900 pcg/mL LAB CHEMISTRY METHOD 10/29/2024 4:12 PM EDT [facility] Blood Venous blood specimen / Unknown Venipuncture / Unknown 10/29/2024 10:24 AM EDT 10/29/2024 10:24 AM EDT us Nena Hastings NP LAB BLOOD ORDERABLES Final Re sult [facility] [address] [place] [address], * Comprehensive metabolic panel (10/29/2024 10:24 AM EDT) Sodium 138 133 - 145 mmol/L LAB CHEMISTRY METHOD [facility] Potassium 4.9 3.5 - 5.5 mmol/L LAB CHEMISTRY METHOD 10/29/2024 4:12 PM [facility] Chloride 110 96 - 110 mmol/L LAB CHEMISTRY METHOD 10/29/2024 4:12 PM [facility] CO2 23 21 - 32 mmol/L LAB CHEMISTRY METHOD 10/29/2024 4:12 PM [facility] Anion Gap 5 3 - 11 LAB CHEMISTRY METHOD 10/29/2024 4:12 PM [facility] Glucose 90 70 - 100 mg/dL LAB CHEMISTRY METHOD 10/29/2024 4:12 PM [facility] BUN 5 5 - 25 mg/dL LAB CHEMISTRY METHOD 10/29/2024 4:12 PM [facility] Creatinine 0.83 0.50 - 1.10 mg/dL LAB CHEMISTRY METHOD 10/29/2024 4:12 PM [facility] eGFR 89 >=60 mL/min/1. 73m2 LAB CHEMISTRY METHOD 10/29/2024 4:12 PM [facility] Comment:Calculation based on the Chronic Kidney Disease Epidemiology Collaboration (CKD-EPI) equation refit without adjustment for race. BUN/Creatinine Ratio 6.0 LAB CHEMISTRY METHOD 10/29/2024 4:12 PM [facility] Calcium 8.8 8.5 - 10.5 mg/dL LAB CHEMISTRY METHOD 10/29/2024 4:12 PM [facility] AST (SGOT) 17 10 - 42 unit/L LAB CHEMISTRY METHOD 10/29/2024 4:12 PM EDT [facility] ALT (SGPT) 28 10 - 60 unit/L LAB CHEMISTRY METHOD 10/29/2024 4:12 PM EDT [facility] Alkaline Phosphatase 87 42 - 121 unit/L LAB CHEMISTRY METHOD 10/29/2024 4:12 PM EDT [facility] Total Protein 6.6 6.0 - 8.0 g/dL LAB CHEMISTRY METHOD 10/29/2024 4:12 PM EDT [facility] Albumin 3.2 3.2 - 5.0 g/dL LAB CHEMISTRY METHOD 10/29/2024 4:12 PM EDT [facility] Total Bilirubin 0.2 0.0 - 1.4 mg/dL LAB CHEMISTRY METHOD 10/29/2024 4:12 PM EDT [facility] Blood Venous blood specimen / Unknown Venipuncture / Unknown 10/29/2024 10:24 AM EDT 10/29/2024 10:24 AM EDT Luis ARANGO LAB BLOOD ORDERABLES Fi nal Result [facility] [address] [place] [address], * HPV with reflex genotype (04/18/2024 11:40 AM EDT) HPV Negative Negative LAB MICROBIOLOGY METHOD 04/19/2024 1:45 PM EDT [facility] Brushing Cervix uteri structure / Unknown 04/18/2024 11:40 AM EDT 04/19/2024 7:06 AM EDT Tiffanie Hamilton CNM LAB MOLECULAR DIAGNOSTICS ORD ERABLES Final Result [facility] [address] [place] [address], * DIAGNOSTIC MAMMOGRAPHY INCLUDING CAD BILATERAL (05/12/2023 2:50 PM EDT) Anatomical Region Laterality Modality Mammography 12/06/2021 8:58 AM EDT Narrative 05/12/2023 2:53 PM EDT This is a summary report. The complete report is available in the patient's medical record. If you cannot access the medical record, please contact the sending organization for a detailed fax or copy. Bilateral diagnostic digital mammogram History: Follow-up right breast microcalcifications. Full field digital tomosynthesis mammography, reviewed with CAD and compared to previous mammograms dating back to 11/28/2020. Magnification views of the right breast in the CC mediolateral projections are also obtained compared to previous right breast magnification views of 12/06/2021, 06/01/2021, and 12/01/2020. The breasts are composed of fatty and fibroglandular tissue. No suspicious mass, architectural distortion or suspicious calcifications are identified. Microcalcifications clustered in the retroareolar right breast are unchanged dating back to 2020. IMPRESSION: : No mammographic evidence of malignancy. Stable right breast microcalcifications. These are considered benign. Bilateral mammogram in 1 year to resume annual screening is recommended has been scheduled. BIRADS 2-benign 5 year breast cancer risk assessment 0.7 % Lifetime breast cancer risk assessment 10.9 % Breast cancer risk category Low (<15%) Procedure Note Marleni Cason MD - 09/25/2023 This is a summary report. The complete report is available in thepatient's medical record. If you cannot access the medical record, pleasecontact the sending organization for a detailed fax or copy. Bilateral diagnostic digital mammogram History: Follow-up right breast microcalcifications. Full field digital tomosynthesis mammography, reviewed with CAD andcompared to previous mammograms dating back to 11/28/2020. Magnificationviews of the right breast in the CC mediolateral projections are alsoobtained compared to previous right breast magnification views of12/06/2021, 06/01/2021, and 12/01/2020. The breasts are composed of fattyand fibroglandular tissue. No suspicious mass, architectural distortionor suspicious calcifications are identified. Microcalcificationsclustered in the retroareolar right breast are unchanged dating back [id number]. IMPRESSION: : No mammographic evidence of malignancy. Stable right breastmicrocalcifications. These are considered benign. Bilateral mammogram in1 year to resume annual screening is recommended has been scheduled. BIRADS 2-benign 5 year breast cancer risk assessment 0.7 % Lifetime breast cancer risk assessment 10.9 % Breast cancer risk category Low (<15%) Tiffanie Hamilton CNM IMG BI PROCEDURES Final Resul t from Last 3 Months or Most Recently Relevant to Health Maintenance Insurance [facility] [employer] Advance Directives * Full Code - Confirmed (Latest Code Status on File) Date Activated Date Inactivated Comments 01/13/2024 7:19 PM 01/18/2024 4:20 PM This code s tatus was ascertained in the following way: Code status discussion: discussion with patient To update the patient's code status, place a code status order. Do not modify or discontinue any currently active code status orders. * Full Code - Default Date Activated Date Inactivated Comments 01/13/2024 6:10 PM 01/13/2024 7:19 PM This is orde r is used when code status has not been discussed with the patient, or code status is otherwise unknown/unconfirmed To update the patient's code status, place a code status order. Do not modify or discontinue any currently active code status orders. Care Teams Machine Mover Relationship Specialty Start Date End Date Rosemary Vega MD [address] [facility] [place] [address] PCP - General Internal Medicine 10/14/24
--- OUTSIDE RECORDS SUMMARY | 2024-12-25 10:31 | XMS_ITS | Data Portability ---
Author Organization [place] - [employer] [facility] Address [address] [place] [id number] Care Team Providers Care Professor Of Social Work Name Role Phone DANE JERNIGAN Primary Care Provider Assessment Encounter Date Assessment Date Assessment LastModified by Organization Details LastModified Time 03/29/2023 03/29/2023 42 year old femsue castellon historian with history of bipolar, recently self admission to partial hospitalization for mental health from 03/17/23 to 03/28/23. Following closely by her psychiatrist, per XAVIER, jack appt 04/10/23. Will request medical records. no labs or history available. I spent 60 minutes [id number] with the patient. Over half of the time was spent in discussion of the diagnosis, the treatment plan including risks, benefits and alternatives, and the importance of adherence. Consents already on file in [employer]. Patient educated on program and services. Follow up as below, patient educated that if a need arises they can contact [employer] 29/08. Direct provider number provided to patient. Next Primary Care appointment is on 04/21/2023 Recently had Telehealth appt on 03/23/23 for inhaler and for asthma . Return to Clinic- Wellness Visit Upcoming Calendar Year or treatment sooner if needed After visit summary will be faxed to active providers listed, and uploaded to [employer] by Patient Document Control Specialist (PSS) and for review and communication to [facility] Assigned Care Managers and Social Workers. Patient to follow up on regular joesph with Managed Care [facility] Floor Polisher and Toy Mechanic. I Betito Snow MD was not present at time of visit , reviewed and discussed plan of care. Agree with [employer] OPERATIONS TRAINER for assesment and plan. [email or web address] Not available 04/26/2023 07:39:24 Plan of Treatment Reminders Order Date Submit Date Provider Last Modified By Organization Details Last Modified Time Details Appointments None record ed. Lab None record ed. Referral None record ed. Procedures None record ed. Surgeries None record ed. Imaging None record ed. Medication Orders None record ed. Patient TargetsNo targets recorded. Patient Instructions Encounter Date Encounter Id Patient Instructions Last Modified By Organization Details Last Modified Time 03/29/2023 [id number] You were seen today for a [employer] Comprehensive Inventory Assessment as recommended by your health plan. You are recommended to: 1. Have routine physical activity of at least 30 minutes 5 times per week. 2. Eat a healthy diet low in sodium and saturated fats 3. Smoking cessation, if you are a smoker. This includes e-cigarettes and vaping as well. 4. Obtain your annual Influenza vaccination as well as Pneumonia vaccination if you have not had one since age 65. 5. Obtain an annual diabetic foot and eye exam, if you have Diabetes. 6. Take your daily medications as prescribed 7. Follow up with your Primary Care Provider for your preventative cancer screenings, including colorectal cancer screening, mammogram for women, prostate exam for men, and Lung CT for smokers. 8. It is important to know that for those patients over the age of 60 with certain chronic conditions, that you are at risk for adverse outcomes from COVID-19. 9. It is important to know that for patients with CKD Stage 4 and one or more of the following chronic conditions, then you are most at risk for adverse outcomes: Hypertension, Diabetes, Hypercholesterolem ia, Obesity, Tobacco use, Proteinuria, Hyperkalemia, Anemia due to renal disease, Volume overload, Hyperphosphatemia, and Secondary hyperparathyroidis m. 10. Follow up with your Primary Care Provider as scheduled for continued management of your chronic health conditions. [email or web address] Not available 03/29/2023 10:10:53 Reason for Referral None Reported. Problems Name Problem SNOMED Code Status Onset Date Resolution Date Notes Provider Name and Address Organization Details Recorded Time Morbid obesity 028771135 Active 024 [employer], MALE IMPERSONATOR [address], [place], [address], [facility] 4 10:23:12 Bipolar disorder 57545293 Active 024 [employer], MALE IMPERSONATOR [address], [place], [address], [facility] 4 10:23:07 Depressive disorder 79183995 Active [address] [address], [place], [address], [facility] 4 10:23:09 Asthma 737422396 Active [address] [address], [place], [address], [facility] 4 10:23:06 Notes:01/29/23 abdominal U/S : No evidence of hydronephrosis, mass, or calculus was seen in the right kidney. The right kidney measures 10.9 cm in greatest length. Problem Notes None recorded. Medical Equipment None Reported. Allergies Allergen ID Allergen Name Allergen Category Reaction Reaction Severity Criticality Documentation Date Start Date Code Code System Note Provider Name and Address Organization Details Recorded Time 69278 Substance with sulfonami de structure and antibacte rial mechanism of action (substanc e) medicatio n rash Not available Not available 03/29/2023 61821 [address], [address], [facility] 4 10:39:29 94181 Non-stero idal anti-infl ammatory agent (substanc e) medicatio n other Not available Not available 03/29/2023 12573 5008 SNOMED ulcer s On [address], [address], [facility] 4 13:03:44 Medications Name Sig Start Date Stop Date Status Note LastModified by Organization Details LastModified Time betametha sone valerate 0.1 % topical ointment APPLY TOPICALL Y TO THE AFFECTED AREA TWICE DAILY UNTIL RESOLVED active Not Available Not Available No t Available clonidine HCl 0.1 mg tablet TAKE 1 TABLET BY MOUTH AT BEDTIME NEEDED FOR ANXIETY OR INSOMNIA 04/18 completed Not Available Not Available Not Available gabapenti n 600 mg tablet TAKE 1 TABLET BY MOUTH AT BEDTIME TAKE WITH 300 MG TABLET TO EQUAL 900 MG active PRescrib ed by paty from [facility] Not Available Not Available Not Available lamotrigi ne 200 mg tablet TAKE 1 TABLET BY MOUTH AT BEDTIME WITH 25MG TABS FOR TOTAL NIGHTLY DOSE 250MG 04/18 completed Not Available Not Available Not Available cefpodoxi me 100 mg tablet TAKE 1 TABLET BY MOUTH TWICE DAILY 04/18 completed Not Available Not Available Not Available ondansetr on HCl 4 mg tablet TAKE 1 TO 2 TABLETS BY MOUTH EVERY 12 HOURS NEEDED FOR NAUSEA 04/18 completed Not Available Not Available Not Available prednison e 20 mg tablet TAKE 3 TABLETS BY MOUTH DAILY FOR 2 DAYS THEN TAKE 2 TABLETS BY MOUTH DAILY FOR 2 DAYS THEN TAKE 1 TABLET BY MOUTH DAILY FOR 2 DAYS 04/16 completed Not Available Not Available Not Available clonazepa m 0.5 mg tablet take 1 tablet orally in the morning , 1.5 tablet orally at bedtime, half a orally as needed active Lenie Not Available Not Available No t Available ciproflox acin 500 mg tablet TAKE 1 TABLET BY MOUTH EVERY 12 HOURS FOR 5 DAYS 04/18 completed Not Available Not Available Not Available bupropion HCl SR 100 mg tablet,12 hr sustained -release TAKE 1 TABLET BY MOUTH EVERY MORNING DIRECTED active paty Not Available Not Available No t Available ondansetr on 8 mg disintegr ating tablet DISSOLVE 1 TABLET ON THE TONGUE EVERY 6 HOURS FOR UP TO 10 DAYS NEEDED FOR NAUSEA 04/18 completed Not Available Not Available Not Available lamotrigi ne 25 mg tablet TAKE 2 TABLET BY MOUTH AT BEDTIME WITH 200MG TO EQUAL 250MG DAILY DOSE 04/18 completed Not Available Not Available Not Available prazosin 5 mg capsule TAKE 1 CAPSULE BY MOUTH AT BEDTIME active pysch Not Available Not Available No t Available potassium chloride ER 20 mEq tablet,ex tended release(p art/cryst ) TAKE 1 TABLET BY MOUTH DAILY 04/18 completed Not Available Not Available Not Available famotidin e 20 mg tablet TAKE 1 TABLET BY MOUTH TWICE DAILY 04/18 completed Not Available Not Available Not Available lorazepam 0.5 mg tablet TAKE 1 TABLET BY MOUTH THREE TIMES DAILY NEEDED FOR ANXIETY active Not Available Not Available No t Available gabapenti n 300 mg capsule TAKE 1 CAPSULE BY MOUTH THREE TIMES DAILY DIRECTED active anxiety prescrib ed from recent admissio n to partial hospital ization Not Available Not Available Not Available omeprazol e 20 mg capsule,d elayed release TAKE 1 CAPSULE BY MOUTH DAILY active pcp Not Available Not Available No t Available norethind skyler acetate 1 mg-ethiny l estradiol 20 mcg tablet TAKE 1 TABLET BY MOUTH EVERY DAY active control 3 week pack. obgyn nurse- barla wheeler Not Available Not Available Not Available lorazepam 1 mg tablet TAKE 1 TABLET BY MOUTH TWICE DAILY NEEDED FOR ANXIETY OR AGITATIO N OR SLEEP active Not Available Not Available No t Available albuterol sulfate HFA 90 mcg/actua tion aerosol inhaler INHALE 2 PUFFS INTO THE LUNGS EVERY 4 HOURS NEEDED FOR COUGH OR WHEEZING active managed by PCP Not Available Not Available Not Available ondansetr on 4 mg disintegr ating tablet DISSOLVE 1 TABLET ON THE TONGUE EVERY 8 HOURS NEEDED FOR NAUSEA 04/18 completed Not Available Not Available Not Available fluticaso ne propionat e 50 mcg/actua tion nasal spray,annmarie pension SHAKE LIQUID AND USE 2 SPRAYS IN EACH NOSTRIL EVERY DAY active Not Available Not Available No t Available lamotrigi ne 100 mg tablet TAKE 1 TABLET BY MOUTH EVERY MORNING AND TAKE 2 TABLETS BY MOUTH AT BEDTIME active paty hong Not Available Not Available Not Available varenicli ne tartrate 1 mg tablet TAKE 1 TABLET BY MOUTH TWICE DAILY 04/18 completed Not Available Not Available Not Available Pulmicort Flexhaler 180 mcg/actua tion breath activated INHALE 2 PUFFS INTO THE LUNGS EVERY 4 HOURS NEEDED FOR WHEEZING OR COUGH OR SHORTNES S OF BREATH active Not Available Not Available No t Available lurasidon e 80 mg tablet TAKE 1 TABLET BY MOUTH EVERY DAY active prescrib ed by jackelyn Not Available Not Available Not Available lurasidon e 20 mg tablet TAKE 1 TABLET BY MOUTH EVERY EVENING WITH 80MG 04/16 completed Not Available Not Available Not Available Stimulant Laxative Plus 8.6 mg-50 mg tablet TAKE 1 TABLET BY MOUTH TWICE DAILY NEEDED FOR CONSTIPA TION 04/18 completed Not Available Not Available Not Available ProAir RespiClic k 90 mcg/actua tion breath activated INHALE 2 PUFFS INTO THE LUNGS EVERY 4 HOURS NEEDED FOR WHEEZING OR COUGH OR SHORTNES S OF BREATH 04/18 completed Not Available Not Available Not Available BinaxNOW COVID-19 Ag Self Test kit FOLLOW PACKAGE DIRECTIO NS 04/16 completed Not Available Not Available Not Available Vitals Date Recorded Body height Body mass index (BMI) Body weight Systolic And Diastolic Provider Name and Address Organization Details Last Updated DateTime 03/29/2023 157.48 cm 42.4 kg/m2 781575.43 g 116/76 mm[Hg] [employer], MALE IMPERSONATOR [address], [place], [address], [place] - [facility] 03/29/2023 13:03:09 Social History Question Answer Notes LastModified by Organizat ion Details LastModified Time Which Illicit Or Recreational Drugs Have You Used? Marijuana Information not available 03/29/2023 In A Normal Week, How Many Times Do You Engage In Macqlxkr-ll-eai enuous Physical Activity For At Least 30 Minutes At A Time? Moderate Physical Activity Is Any Activity That Causes Speaking To Take A Little More Effort Than Usual, But Doesn t Leave You Gasping For Air, And Would Still Allow You To Carry On A Conversation. 1-2 Times Per Week Take Walks Depending On Weather Outside Information not available 03/29/2023 What Is Your Current Smoking Status? Current Every Day Smoker 15 Cigarrette A Day Information not available 03/29/2023 In A Normal Week How Many Days Do You Consume Alcohol? None Parents Were Alcoholics Information not available 03/29/2023 Describe Your Level Of Cognitive Function; Considering Your Ability To Communicate And Understand Instructions And Ability To Process Information About Your Current Health Conditions? Alert/oriented And Able To Focus And Shift Attention/comp rehends And Recalls Direction Independently. Information not available 03/29/2023 Do You Require Assistance Walking? No - Patient Is Fully Independent And Requires No Assistance Walking. Information not available 04/19/2023 Do You Require Assistance Transferring? No - Patient Is Fully Independent And Requires No Assistance Transferring. Information not available 04/19/2023 Do You Require Assistance With Feeding? No - Patient Is Fully Independent And Requires No Assistance With Feeding. Information not available 04/19/2023 Do You Require Assistance With Bathing? No - Patient Is Fully Independent And Requires No Assistance With Bathing. Information not available 04/19/2023 Do You Require Assistance Grooming? No - Patient Is Fully Independent And Requires No Assistance Grooming. Information not available 04/19/2023 Do You Require Assistance Getting Dressed? No - Patient Is Fully Independent And Requires No Assistance Getting Dressed. Information not available 04/19/2023 Do You Require Assistance Toileting? No - Patient Is Fully Independent And Requires No Assistance Toileting. Information not available 04/19/2023 Are You Incontinent Of The Following? No - Patient Is Fully Independent With This ADL. Information not available 04/19/2023 What Was The Date Of Your Most Recent Tobacco Screening? 03/29/2023 Information not available 03/29/2023 Have You Used IV Drugs? No Information not available 03/29/2023 Sex: Unknown Functional Status Question Answer Note LastModified by Organizat ion Details LastModified Time Do you use any illicit or recreational drugs? Yes Information not available 03/29/2023 Do you or have you ever used any other forms of tobacco or nicotine? No Information not available 03/29/2023 Are you currently employed? No disability until end may Information not available 03/29/2023 Mental Status Question Answer Note LastModified by Organization D etails LastModified Time Do you have difficulty concentrating, remembering or making decisions? No Information no t available 03/29/2023 Family History Relationship Description Onset Age of this Age Resolved Age Notes LastModified by Organization Details LastModified Time Father Heart disease chf oseng Not available 2023 13:12:32 Paternal Grandmother Heart disease oseng Not available 2023 13:12:33 Mother Type 2 diabetes mellitus oseng Not available 2023 13:12:51 Maternal Grandmother Malignant neoplasm of lung oseng Not available 2023 13:13:17 Medical History No medical history recorded. Gynecological HistoryNo gynecological history recorded. Obstetrics History GPAL:G 0 P 0 0 0 0 Past Encounters Encounter ID Performer Location Encounter Start Date Encounter Closed Date Diagnosis/Indication Diagnosis SNOMED-CT Code Diagnosis ICD10 Code Diagnosis IMO Codes Diagnosis Note [id number] On [facility] [address] [place] [address] 03/29/2023 12:54:49 05/01/2023 14:42:04 Morbid obesity 785953855 E66.01 - BMI 42.2 on 03/29/23- PCP appt 04/21/23, per patient wants to start on Mounjaro for weight lost- Educated patient on importance of exercise plan (30 min a day for 5 days a week) and daily physical activity (walking, gardening, and climbing stairs)- Educated patient on of a healthy diet: eat a balanced, calorie-co ntrolled diet Bipolar disorder 0770084 4 F31.9 - Medication : Bupropion, clonazepam , gabapentin , lamotrigin e, lorazepam, lurasidone , prazosin- Followed by Psychiatri next appt 04/10/23. and Therapist- Reviewed symptoms such as high energy, reduced need for sleep, and loss of touch with reality. Depressive episodes may include symptoms such as low energy, low motivation , and loss of interest in daily activities . Mood episodes last days to months at a time and may also be associated with suicidal thoughts. Depressive disorder 7160 9007 F32.A - PHQ score: 9 Negative- Depression Severity:M ild depression 5-9- Depression :Type unknownEpi sode recurrentS everity moderate without psychotic features- Medication : Bupropion, clonazepam , gabapentin , lamotrigin e, lorazepam, lurisadone , prazosin- Mood stable at baseline- Denies suicide/ho micidal ideations at this time- Recommend meditation , yoga, breathing exercises- Has Psychiatri st and therapist. Asthma 813911537 J45.90 9 - Rescue inhaler: albuterol inhaler- Medication : Pulmicort ( recent Upper respirator y infection) - Denies increase s/s of difficulty breathing, chest pain, cough and wheezing.- Discussed/ Review s/s of Cough: can occur at night, during exercise, can be chronic, dry, with phlegm, mild, or severe, Respirator y: difficulty breathing, wheezing, breathing through the mouth, fast breathing, frequent respirator y infections , rapid breathing, or shortness of breath at night. Also common: chest pressure, flare, anxiety, early awakening, fast heart rate, or throat irritation - Followed by PCP- Denies/Rep orts recent acute exacerbati on- Stable at this time Health Concerns Section Related Observation LastModified by Organization Detai ls LastModified Time None Recorded Concern Status LastModified by Organization Details LastModified Time None Recorded Advance Directives Directive None Recorded Payers Insurance Date Sequence Insurance Name Policy Number Policy Haddad Covered Member ID Haddad Member ID Guarantor Name 12/23/2023 1 [employer] [employer] DIRECT - [place] (HMO) [id number] Karyn P Herring [id number] Karyn Herring 12/23/2023 1 [facility] - DIRECT CONNECTORCARE TYPE I (HMO) Karyn Herring [id number] Karyn Swansonelsen 12/23/2023 1 [facility] Karyn Herring [id number] Karyn Herring 12/23/2023 1 [facility] (O) Karyn Herring [id number] Karyn Herring Notes Date Note Type Note Provider Name and Address Organization Details Recorded Time 03/29/2023 text/html Comprehensive Inventory Assessment (FELIX)Reported by PatientMental StatusFor speech/motor difficulties, patient reportsno speech difficulties,no difficulty expressing formulated concepts,no difficulty with fine manipulative tasks, andno difficulty writing/copying.Functi onal AbilityFor diet and nutrition, patient reportsdiet is high in salt,diet is high in fat, low in fiber,high caloric intake, andhigh carbohydrate mealsbut reportsdiscussed vitamin and supplement use,discussed portion control,discussed maintaining calcium balance, anddiscussed diet improvement(eats big y rotisserie , fastfood , drinking water about 5 bottle a day adding zero calorie flavored mix). For hospitalizations, patient reportshospitalization (s) in the last year. For instrumental activities of daily living, patient reportsable to grocery shop with limited or no assistance,able to manage money with limited or no assistance,able to prepare meals with limited or no assistance,able to use the phone with limited or no assistance,able to do housekeeping independently, andable to do laundry independently. For home safety, patient reportsno unsafe clari hazzards,no unsafe stairs,working smoke/co detectors,has hand bars in the bathroom/shower,good lighting in the home, andgood oral hygiene. For fall risk assessment, patient reportsno history of fractures,no fall in the past year,no fall since last visit, andno dizziness/vertigo.Pain AssessmentFor pain intensity and frequency, patient reports(if no pain = 0, has pain = 1-10) 0. For opioid evaluation - has patient required/used more than a 15 day supply of narcotic medication?, patient reportsno.Preventative Screenings- (Results Must Include MM/DD/YYYY)For breast cancer (females, 52-74), patient reportsmammogram (due every 2 years) result date: ___ (2001 last mammogram). For bladder control screening, patient reportsdiscussed urinary incontinence, including bladder training exercises, medication and surgery no.Chronic Condition Management- (Results Must Include MM/DD/YYYY)For depression, patient reportsseverity - phq-9 score: mild 5-9,episode - recurrent,remission - partial,psychotic features - no, andsuicidal ideation - nobut reportsphq-9 complete,depression - yes, andif depression; treatment: medications and psychotherapy. For coronary artery disease (cad), patient reportscad - no. For diabetes mellitus (dm), patient reportsdm - no. For chronic obstructive pulmonary disease (copd), patient reportscopd - no. For congestive heart failure (chf), patient reportschf - no. For cardiac devices, patient reportscardiac device - no. For history of cerebrovascular accident (cva), patient reportscva - no. For cancer, patient reportscancer - no. For skin ulcers, patient reportsskin ulcers - no. For substance abuse disorders (sriram), patient reportssud - no. For rheumatoid arthritis (ra), patient reportsra: no.Medication review for Optimal CKD Management:For 5. proton pump inhibitors, patient reportscounseled on increased risk of ckd progression with ppi s . Patient seen today for telehealth assessment. [employer] Floor Polisher is not present in home during visit. Consent for telemedicine was obtained from the patient/ responsible libertarian. Visit was done via secure, interactive, audiovisual communication that permits real-time communication between the patient and the provider, through a HIPAA compliant telehealth platform, [employer]. Patient located at home: [place] Provider located at home office in City/ State: [place] Patient s identity was confirmed with Driving License/ Other mode of identity. Floor Polisher present in patients home: No Floor Polisher took patient vital signs: No Reasonable efforts have been made to maintain usual and customary patient confidentiality. Reason for telemedicine visit: provider availability The HPI consists of patient reported history and the provider's clinical interpretation. Betito Snow MD [address], [place], [address], [facility] - [facility] 04/26/2023 07:39:28 OBGyn Episode No OBEpisode recorded.
== END ==
LOC: HO.CARD 14:15
PROVIDERS: PCP Internal Medicine; Visit Provider Psychiatry & Neurology Psychiatry
DX: F31.9 Bipolar disorder, unspecified (principal); K90.9 Intestinal malabsorption, unspecified; M19.90 Unspecified osteoarthritis, unspecified site
CPT/HCPCS: 36415; 80053; 82306; 82550; 82607; 82746; 83090; 83540; 83735; 84425; 84439; 84443; 84550; 85025; 85652; 86140; 86431; 86780; 87389; 93005

== ENCOUNTER → 2024-12-24 14:20 | Outpatient (BNV) | payer OTHER, SELFPAY | PROVIDERS: PCP Internal Medicine; Visit Provider Internal Medicine | DX: Z13.6 Encounter for screening for cardiovascular disorders (principal) | CPT/HCPCS: 93010 ==

== ENCOUNTER → 2024-12-27 09:15 | Outpatient (BNV) | payer OTHER, SELFPAY | PROVIDERS: Visit Provider Psychiatry & Neurology Psychiatry | DX: F31.30 Bipolar disorder, current episode depressed, mild or moderate severity, unspecified (principal); F41.8 Other specified anxiety disorders; F42.3 Hoarding disorder; E55.9 Vitamin D deficiency, unspecified; D64.9 Anemia, unspecified; E53.8 Deficiency of other specified B group vitamins; F11.21 Opioid dependence, in remission | CPT/HCPCS: 99214 ==

== ENCOUNTER 2025-01-08 13:43 | Outpatient (REF) | payer OTHER, SELFPAY ==
[2025-01-08 14:15] LABS: Appearance Urine Clear; Glucose Urine UA Negative (Negative); PH 6.0 (5.0-9.0); Specific Gravity - Urine 1.010 (1.005-1.025); UMIC TRIGGER UA YES
[2025-01-08 14:22] LABS: Baso%MD 0.4 %; Eos%MD 2.2 %; Hematocrit 36.2 % (37.0-47.0); Hemoglobin 11.1 g/dl (12.0-16.0); IG%MD 0.4 %; Lymph%MD 28.6 %; Mean Corpuscular HGB Conc 30.7 g/dl (31.0-35.0); Mean Corpuscular Hemoglobin 24.4 pg (27.0-33.0); Mean Corpuscular Volume 79.7 fL (80.0-98.0); Mono%MD 6.0 %; NRBC Abs Auto 0.000 X10*3/uL (0.0-0.012); NRBC Pct Auto 0.0 /100WBC (0.0-0.2); Neut%MD 62.4 %; Platelet Count 501 X10*3/uL (160-400); Red Blood Count 4.54 X10*6/uL (4.20-5.50); White Blood Count 9.1 X10*3/uL (4.8-10.8)
[2025-01-08 14:49] LABS: Eosinophils Absolute Manual 0.2 X10*3/uL (0.0-0.4); Eosinophils Percent Manual 2 % (0-4); Lymphocytes Absolute Manual 2.4 X10*3/uL (1.2-4.9); Lymphocytes Percent Manual 26 % (20-40); Monocytes Absolute Manual 0.5 X10*3/uL (0.1-1.2); Monocytes Percent Manual 6 % (2-11); Neutrophils Percent Manual 66 % (45-73)
[2025-01-08 14:51] LABS: RBC Morphology NORMAL
[2025-01-08 14:52] LABS: Band Neutrophils Percent 0 % (3-5); Neutrophils Absolute Manual 6.0 X10*3/uL (2.0-8.3)
[2025-01-08 15:17] LABS: Prealbumin 25.0 mg/dL (20-40)
--- OUTSIDE RECORDS SUMMARY | 2025-01-08 16:21 | XMS_ITS | Clinical Summary ---
Author Organization [facility] Address [address] [place] [address] Care Team Providers Care Cracker Dough Mixer Name Role Phone Luis Berry Primary Care Provider [phone] Allergies Active Allergy Reactions Criticality Noted Date [...] past history of bipolar disorder. Presented to [facility] ER with altered mental status, intubated due to concern about ability to maintain airway and admitted to ICU for acute encephalopathy concerning for toxic ingestion. Later reported that she had taken 10-15 tablets of clonidine for anxiety, denied suicide attempt. Patient was previously hospitalized at [facility] last month. Unclear what caused decompensation [...] Plan to refer for VNA services and [facility] application to be completed. Patient signed 3-day [...] Team Description 12/13/2024 Plan of Care Documentation [facility] [address] [place] [address] 12/10/2024 Plan of Care Documentation [facility] [address] [place] [address] 12/07/2024 5:29 PM EDT - 12/13/2024 10:32 AM EST Hospital Encounter [facility] [address] [place] [address] Olegario Wilson MD Adelayo, Adeola Y, MD [...] Additional history exists Procedures * Due to [place] law, this organization might not be sharing negative HIV tests. Procedure Name Priority Date/Time Associated Diagnosis Comments AMB EXTERNAL EKG, OUTSIDE RESULT 12/02/2024 from Last 3 Months Results * Due to [place] law, this organization might not be sharing negative HIV tests. * EKG, Outside Results (12/02/2024) 12/02/2024 us Onbase Scan [facility] AMB EXTERNAL RESULT PROCEDURE S Final Result from Last 3 Months Insurance [facility] Advance Directives * Presumed Full Code (Latest Code Status on File) Date Activated Date Inactivated Comments 12/07/2024 5:59 PM 12/13/2024 12:35 PM Care Teams Cracker Dough Mixer Relationship Specialty Start Date End Date Luis Berry PA [address] [place] [id number] PCP - General Internal Medicine 12/01/24
[2025-01-08 17:40] LABS: Anion Gap 13 (12-20); Blood Urea Nitrogen 9 mg/dL (9-16); Calcium 8.8 mg/dL (8.4-10.2); Carbon Dioxide 24 mmol/L (22-29); Chloride 104 mmol/L (96-108); Estimated Glomerular Filt Rate > 60; Iron 36 mcg/dL (30-160); Percent Iron Saturation 11 % (15-50); Potassium 4.8 mmol/L (3.3-5.1); Sodium 136 mmol/L (135-145); Total Iron Binding Capacity 321 mcg/dL (228-428); Unsaturated Iron Binding 285 ug/dL
[2025-01-08 17:54] LABS: Ferritin 15 ng/mL (10-250)
[2025-01-09 11:48] LABS: Calcium, Ionized 5.1 mg/dL (4.7-5.5)
[2025-01-09 20:34] LABS: Anti Nuclear Antibody Pattern Nuclear, Homogeneous; Anti Nuclear Antibody Screen POSITIVE (NEGATIVE); Anti Nuclear Antibody Titer 1:80 titer
[2025-01-13 19:03] LABS: Carnitine Esters 7 umol/L (4-13); Carnitine, Free 36 umol/L (19-48); Carnitine, Total 43 umol/L (25-58)
== END 2025-01-08 13:44 | disposition home or self-care (01) ==
LOC: HO.LAB 13:43
PROVIDERS: Visit Provider Psychiatry & Neurology Psychiatry
DX: Z01.84 Encounter for antibody response examination (principal); E87.1 Hypo-osmolality and hyponatremia; M79.10 Myalgia, unspecified site; F39 Unspecified mood [affective] disorder
CPT/HCPCS: 36415; 80048; 81001; 82330; 82379; 82728; 83540; 83615; 84134; 85007; 85027; 85652; 86038; 86039

== ENCOUNTER 2025-01-17 08:00 | Outpatient (RCR) | payer OTHER, SELFPAY ==
[2024-12-19 10:42] VITALS: BP 101/71; PULSE 82; TEMP 37.2; BMI 49.0
--- NOTE | 2024-12-19 15:10 | HO.PHP ---
Clients case was opened and reviewed in teams.
--- NOTE | 2024-12-19 16:09 | PC.ADMIT ---
Patient is a 44 year old female who was referred to [facility] by [facility] where she was admitted from 12/07-12/13/24. Patient told this tag writer that prior to hospitalization she was not able to sleep thus took 4-7 tabs of Clonidine. Patient stated she is a big girl and that's why she took the amount she did to be able to sleep. Prior to hospitalization patient stated , I couldn't sleep and took too much clonidine in an attempt to fall asleep and I passed out on my living room floor and neighbor heard me hit the floor and called 911. Everyone thinks it was a suicide attempt but I know that i just wanted to sleep . Patient also reports that she was in the ICU at [facility] before she was transferred to [facility] behavioral health unit. She stated she was intubated while at [facility] and she was awake when they were trying to intubate her. She stated she was fighting the nurses at the time as they were trying to intubate her. Patient stated her supports are, Neighbors they cook for me and bring me coffee and my next door neighbor who completely redid my apartment she painted and got me new furniture. Regarding SA patient stated, I could never do that to my cat. I would never abandon him. Patient denied any history of SA. Patient reports she is happy to be alive. It was all terrible accident. I have a visiting nurse that manages my medication she comes every morning. Patient reports a history of passing out while using the bathroom in the middle of the night on the Monday after she came home from the hospital. Reports having history of passing out in January 2024 and fracturing her ankle. Patient also reports history of being hospitalized d/t dehydration. According to discharge paperwork from [facility] patient is on Clonidine 2 mg at HS, Prazosin 7 mg at HS, Guanfacine ER 2 mg at HS and according to patient's VNA Ritu, who I updated patients medications with, patient is also taking Propranolol [address] Segovia is aware. New medication orders per Dr. Manzanares given to patient and I called patient's nurse Ritu and reviewed the following medication changes. Patient is to take Guanfacine 2 mg in the morning, Clonidine 0.2 mg at 1700, and Prazosin is decreased to 4 mg at HS. Patient is to discontinue propranolol. Patient is alert and oriented x4. She is calm and cooperative. She presented with anxious mood and affect. She denied SI, no HI. She was given a copy of her safety plan if needed. Medications updated with patient and patient's VNA Ala.
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
--- NOTE | 2024-12-30 07:24 | HO.PHPPROGNO ---
Subjective Subjective Date of Service: 12/27/24 Reason For Visit: bipolar Interim History: Reviewed interim events, neighbors have been assisting her with maintenance of her home. They had taken the 2 weeks she was inpatient to clean out her apartment, buying her new furniture, replacing carpets. Everything had been filthing under years of clutter built up. She feels so grateful toward them that she has been trying hard to keep her space clean and organized, but describes how difficult this task is with long-standing executive dysfunction. Has been identified by other providers as having ADHD, but has not been treated, saying that her Bipolar Disorder was cited as a reason providers were reluctant to treat so she didn't pursue this. Nonetheless executive dysfunction is at the heart of her mental health struggles. SHe notes clutter gathers quickly and there was some issue with her cat climbing up on the stove and accidentally turning on the gas which once she smelled it and figured this out, she had her neighbor come and remove the knobs because was not the first time the cat has done this, and she was unable to use the stove anyway due to clutter. Mood is okay and rates mood stability at a 7/10 (stressors around lack of family support and financial constraints in addition to inefficiency/lack of productivity keep her from scoring higher. Medication Compliance: Yes Side effects from medications: No Attending Groups: Yes Review of Systems Acute medical concerns: No Review of Systems: endorses recurring bilateral knee pain, bilateral hand pain (particularly PIP) ESR elevated, otherwise 10-point ROS negative including for rashes, weight change Mental Status Exam Mental Status Exam Narrative: Alert, oriented, in no acute distress. Cooperative, engaged. Mood ok , affect elevated, mood congruent no lability noted. Speech normal. Thought process scattered, but logical, coherent. Thought content related to stressors, executive dysfunction, no helplessness and hopelessness, denies SI, intention or plan. Denies any aggressive ideation. No paranoia or delusional content elicited. No evidence of psychosis. Insight and judgment fair but adequate. Diagnostics Vital Signs (24Hr): BMI result Body Mass Index 49.0 Assessment & Plan Assessment & Plan (1) Bipolar affective, depress, unspec: Status: Acute Code(s): F31.30 - Bipolar disorder, current episode depressed, mild or moderate severity, unspecified (2) Other specified anxiety disorders: Status: Acute Code(s): F41.8 - Other specified anxiety disorders (3) Hoarding behavior: Status: Acute Code(s): F42.3 - Hoarding disorder (4) Vitamin D deficiency: Status: Acute Code(s): E55.9 - Vitamin D deficiency, unspecified (5) Mild chronic anemia: Status: Acute Code(s): D64.9 - Anemia, unspecified (6) Vitamin B12 deficiency: Status: Acute Code(s): E53.8 - Deficiency of other specified B group vitamins (7) Opioid dependence in remission: Status: Acute Code(s): F11.21 - Opioid dependence, in remission Plan start memantine ER 7 mg qhs start Vyvanse 10 mg qam start active vitamin B complex (methylated) - 1 tablet daily start weekly vitamin D2 would like Vistaril 50 mg TID prn reinstated which helps with anxiety continue guanfacine ER 2 mg qam continue gabapentin 1600 mg qhs continue Lamictal 300 mg qd (150 mg BID) - may consider lowering due to hyponatremia (134) will recheck Na level continue Latuda 60 mg qd w meal continue clonidine 0.2 mg qd at 5pm continue prazosin 4 mg qhs continue benztropine 1 mg in AM and 0.5 mg qhs continue baclofen 20 mg TID continue sumatriptan 50 mg qd prn migraine continue pantoprazole 20 mg qd Routine lab work reviewed - low Hb, Hct, Na, Elevated homocysteine, UDS, EKG as indicated Continue to monitor Patient educated on: diagnosis, medication risk/benefits and medical condition Informed Consent: understands Reason for contiued partial hosp. stay Substantial Risk for: inability to function, rapid decompensation and med/psych decompensation Certification I certify that partial hospital treatment is medically necessary due to the symptoms and problems resulting from the patient's mental illness and the failure to treat the patient at the partial hospital level of care would likely result in the patient requiring inpatient psychiatric care which could not be prevented at a less intensive level of care. Total time managing care of this patient today _30___ minutes. Discharge Plan Discharge Attending provider: Mesha Segovia Medications: New hydroxyzine pamoate 50 mg capsule 50 mg PO TID PRN (Reason: anxiety) Qty: 90 0RF lamotrigine 150 mg tablet 150 mg PO BID Qty: 60 0RF memantine 7 mg capsule,sprinkle,ER 24hr 7 mg PO DAILY Qty: 30 0RF lisdexamfetamine 10 mg capsule 10 mg PO QAM Qty: 30 0RF Rx Instructions: Partial Fill upon patient request. For ADHD, combined type ergocalciferol (vitamin D2) [Vitamin D2] 1,250 mcg (50,000 unit) capsule 1,250 mcg PO QWEEK Qty: 14 0RF vitamin B complex Capsule 1 cap PO DAILY Qty: 30 0RF Rx Instructions: administer with a meal Continued lamotrigine 200 mg Tablet 200 mg PO DAILY Rx Instructions: Take 1.5 tabs at bedtime. lurasidone 60 mg tablet 60 mg PO QAM Qty: 30 0RF Rx Instructions: must administer with food (at least 350 calories) gabapentin 800 mg tablet 1,600 mg PO BEDTIME Rx Instructions: take 2 tabs at bedtime. albuterol sulfate 90 mcg/actuation HFA aerosol inhaler 1 - 2 puff inhalation Q6H PRN (Reason: SOB) baclofen 10 mg tablet 20 mg PO BID sumatriptan succinate 50 mg tablet 50 mg PO DAILY PRN (Reason: Migraines) Rx Instructions: Take once a day for Migraines. MR once in two hours if no relief. Do not exceed 2 doses in 24 hrs. pantoprazole 20 mg Tablet,Delayed Release (Dr/Ec) 20 mg PO DAILY clonidine HCl 0.2 mg Tablet 0.2 mg PO DAILY@1700 Patient Comments: I confirmed with Dr Segovia patient to take at 5pm instead of bedtime. VNA is aware. Rx Instructions: Take at 5pm. guanfacine 2 mg Tablet Extended Release 24 Hr 2 mg PO DAILY Patient Comments: Confirmed with Dr. Segovia patient to take this medication in the morning. VNA is aware. benztropine 0.5 mg tablet See Rx Instructions .ROUTE .COMPLEX Rx Instructions: Take two tabs in the morning and one tab at bedtime. prazosin 2 mg Capsule 4 mg PO BEDTIME Qty: 60 0RF Changed hydroxyzine HCl 25 mg Tablet 25 mg PO TID PRN (Reason: Anxiety) Qty: 45 0RF Stand Alone Forms: Patient Portal Discharge page Print Language: Syriac
--- NOTE | 2025-01-01 20:44 | HO.PHPPROGNO ---
Subjective Subjective Date of Service: 01/01/25 Reason For Visit: bipolar Interim History: Patient seen for follow-up. No major changes, Mood remains stable, bright. No evidence of depression or hypomanic behaviors. Sleeping well. Full 8-10 hrs. Remains highly motivated, energy stable, but still struggling with executive functioning, completing tasks and managing her health and home. Reviewed recent lab work, noted to have some nutritional deficiencies/insufficiencies on account of unhealthy diet which she is working on . No EDB. Still waiting for PA approval for stimulant medication (Vyvanse). Will try ordering short acting to see if covered by insurance, could also use GoodRx to pay out of pocket in the meantime to get started. Medication Compliance: Yes Side effects from medications: No Attending Groups: Yes Review of Systems Acute medical concerns: No Review of Systems: endorses recurring bilateral knee pain, bilateral hand pain (particularly PIP) ESR elevated, otherwise 10-point ROS negative including for rashes, weight change Mental Status Exam Mental Status Exam Narrative: Alert, oriented, in no acute distress. Cooperative, engaged. Mood ok , affect elevated, mood congruent no lability noted. Speech normal. Thought process scattered, but logical, coherent. Thought content related to stressors, executive dysfunction, no helplessness and hopelessness, denies SI, intention or plan. Denies any aggressive ideation. No paranoia or delusional content elicited. No evidence of psychosis. Insight and judgment fair but adequate. Diagnostics Vital Signs (24Hr): BMI result Body Mass Index 49.0 Assessment & Plan Assessment & Plan (1) Bipolar affective, depress, unspec: Status: Acute Code(s): F31.30 - Bipolar disorder, current episode depressed, mild or moderate severity, unspecified (2) Other specified anxiety disorders: Status: Acute Code(s): F41.8 - Other specified anxiety disorders (3) Hoarding behavior: Status: Acute Code(s): F42.3 - Hoarding disorder (4) Attention-deficit hyperactivity disorder, unspecified type: Status: Acute Code(s): F90.9 - Attention-deficit hyperactivity disorder, unspecified type (5) Vitamin D deficiency: Status: Acute Code(s): E55.9 - Vitamin D deficiency, unspecified (6) Mild chronic anemia: Status: Acute Code(s): D64.9 - Anemia, unspecified (7) Vitamin B12 deficiency: Status: Acute Code(s): E53.8 - Deficiency of other specified B group vitamins Plan start memantine ER 7 mg qhs start Vyvanse 10 mg qam start active vitamin B complex (methylated) - 1 tablet daily start weekly vitamin D2 would like Vistaril 50 mg TID prn reinstated which helps with anxiety continue guanfacine ER 2 mg qam continue gabapentin 1600 mg qhs continue Lamictal 300 mg qd (150 mg BID) - may consider lowering due to hyponatremia (134) will recheck Na level continue Latuda 60 mg qd w meal continue clonidine 0.2 mg qd at 5pm continue prazosin 4 mg qhs continue benztropine 1 mg in AM and 0.5 mg qhs continue baclofen 20 mg TID continue sumatriptan 50 mg qd prn migraine continue pantoprazole 20 mg qd Routine lab work reviewed - low Hb, Hct, Na, Elevated homocysteine, UDS, EKG as indicated Continue to monitor Patient educated on: diagnosis, medication risk/benefits and medical condition Informed Consent: understands Reason for contiued partial hosp. stay Substantial Risk for: inability to function, rapid decompensation and med/psych decompensation Certification I certify that partial hospital treatment is medically necessary due to the symptoms and problems resulting from the patient's mental illness and the failure to treat the patient at the partial hospital level of care would likely result in the patient requiring inpatient psychiatric care which could not be prevented at a less intensive level of care. Total time managing care of this patient today _30___ minutes. Discharge Plan Discharge Attending provider: Mesha Segovia Medications: New lisdexamfetamine 10 mg capsule 10 mg PO QAM Qty: 30 0RF Rx Instructions: Partial Fill upon patient request. For ADHD, combined type ergocalciferol (vitamin D2) [Vitamin D2] 1,250 mcg (50,000 unit) capsule 1,250 mcg PO QWEEK Qty: 14 0RF vitamin B complex Capsule 1 cap PO DAILY Qty: 30 0RF Rx Instructions: administer with a meal Continued albuterol sulfate 90 mcg/actuation HFA aerosol inhaler 1 - 2 puff inhalation Q6H PRN (Reason: SOB) sumatriptan succinate 50 mg tablet 50 mg PO DAILY PRN (Reason: Migraines) Rx Instructions: Take once a day for Migraines. MR once in two hours if no relief. Do not exceed 2 doses in 24 hrs. lisdexamfetamine 20 mg capsule 20 mg PO QAM Qty: 30 0RF Rx Instructions: Partial Fill upon patient request. For ADHD. lamotrigine 150 mg tablet 150 mg PO BID Qty: 60 0RF benztropine 0.5 mg tablet See Rx Instructions .ROUTE .COMPLEX 30 Days Qty: 90 0RF Rx Instructions: Take two tabs in the morning and one tab at bedtime. hydroxyzine pamoate 50 mg capsule 50 mg PO TID PRN (Reason: anxiety) Qty: 90 0RF baclofen 20 mg tablet 20 mg PO BID 30 Days Qty: 60 0RF clonidine HCl 0.2 mg Tablet 0.2 mg PO DAILY@1700 Qty: 30 0RF Rx Instructions: Take at 5pm. prazosin 2 mg Capsule 4 mg PO BEDTIME Qty: 60 0RF guanfacine 2 mg Tablet Extended Release 24 Hr 2 mg PO DAILY Qty: 30 0RF memantine 14 mg capsule,sprinkle,ER 24hr 14 mg PO BEDTIME Qty: 30 0RF Changed gabapentin 800 mg tablet 1,600 mg PO BEDTIME Qty: 60 0RF Rx Instructions: take 2 tabs at bedtime. lurasidone 60 mg tablet 60 mg PO QPM Qty: 30 0RF Rx Instructions: must administer with food (at least 350 calories) Discontinued lamotrigine 200 mg Tablet 200 mg PO DAILY Rx Instructions: Take 1.5 tabs at bedtime. baclofen 10 mg tablet 20 mg PO BID hydroxyzine HCl 25 mg Tablet 25 mg PO DAILY PRN (Reason: Anxiety) pantoprazole 20 mg Tablet,Delayed Release (Dr/Ec) 20 mg PO DAILY Stand Alone Forms: Patient Portal Discharge page Patient Education: ADHD in Adults (ED), Bipolar Disorder (DC) Print Language: Belarusian
--- NOTE | 2025-01-07 20:41 | HO.PHPPROGNO ---
Subjective Subjective Date of Service: 01/07/25 Reason For Visit: bipolar Interim History: Patient seen for follow-up. She continues to struggle with profound executive dysfunction which makes attending to even basic daily activities such as cleaning apartment and self-care difficult. She expresses much appreciation for her neighbors who spent 2 weeks cleaning out her apartment while she was hospitalized. She says she has a lot of shame around her hoarding behaviors, but is learning to accept help from others because she feels utterly helpless and incapable of managing these things alone. Routines have been very difficult to set and she has been trying to figure out where she is having difficult but this has been difficult to assess. She says her neighbors continue to have to give her regular guidance and reminders everyday to gather clutter that starts accumulating on a daily basis, collect dishes, bring out trash, etc. 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 But says over time, her functioning gradually declined, and eventually was unable to manage life while meeting the demands of work. Hoarding tendencies had really set in over the past decade and it was a real reality check when her cat was removed from her care a few months ago due to the state of her home. If a cat isn't even allowed to live in this kind of mess then what am I doing?? She says in more recent years she has had even greater difficulty with even more modest cognitive tasks and any task that requires multiple steps or organization, including cooking a healthy meal. Her mood has otherwise been very steady on current medication regime. Euthymic, denies any symptoms of hypomania or depression. Reports feeling helpless, demoralized, sometimes hopeless about her future, but denies any thoughts of giving up on life. Denies any thoughts of harming self. She has not been able to cotton picker the stimulant (I spoke with pharmacy, I will need to fill out a PA for any stimulant with her insurance). Appetite is intact although patient does not maintain a healthy diet and I note she has some nutritional deficiencies that need to be addressed. Medication Compliance: Yes Side effects from medications: No Attending Groups: Yes Review of Systems Acute medical concerns: No Mental Status Exam Mental Status Exam Patient Appearance: Unkempt Patient Orientation: Person, Place and Time Level of Consciousness: Awake and Alert Patient Behavior: Talkative and Cooperative Mood Description: Calm and Appropriate Affect Description: Cheerful and Anxious Ability to Follow Directions: Good Speech Pattern: Clear and Rambling Memory Description: Intact Hallucinations: None Delusions: Not Present Thought Process: Distracted (scattered at times, but logical, no FOI or NIKOLAS) Thought Content: positive for Circumstantial (NO SI or HI. ) Depressive Symptoms: Diff. Making Decisions Judgement: Good Diagnostics Vital Signs (24Hr): BMI result Body Mass Index 49.0 Assessment & Plan Assessment & Plan (1) Bipolar affective, depress, unspec: Status: Acute Code(s): F31.30 - Bipolar disorder, current episode depressed, mild or moderate severity, unspecified (2) Attention-deficit hyperactivity disorder, unspecified type: Status: Acute Code(s): F90.9 - Attention-deficit hyperactivity disorder, unspecified type (3) Hoarding behavior: Status: Acute Code(s): F42.3 - Hoarding disorder (4) Other specified anxiety disorders: Status: Acute Code(s): F41.8 - Other specified anxiety disorders Plan pending start on psychostimulant (will fill out PA for Sam) continue memantine ER 7 mg qd continue guanfacine ER 2 mg qam continue Lamictal 300 mg qd continue Latuda 60 mg qd at supper/5pm continue clonidine 0.2 mg qd at supper/5pm continue gabapentin 1600 mg qhs continue prazosin 4 mg qhs continue hydroxyzine 50 mg TID prn anxiety, sleep vitamin B complex and weekly vitamin D2 continue other regular medications - baclofen 20 mg TID, pantoprazole, sumatriptan, albuterol inhaler Lab results and EKG reviewed - lab slip given for follow-up on lab work continue to engage in milieu therapy continue to monitor Patient educated on: diagnosis, medication risk/benefits and medical condition Informed Consent: understands Reason for contiued partial hosp. stay Substantial Risk for: inability to function and med/psych decompensation Certification I certify that partial hospital treatment is medically necessary due to the symptoms and problems resulting from the patient's mental illness and the failure to treat the patient at the partial hospital level of care would likely result in the patient requiring inpatient psychiatric care which could not be prevented at a less intensive level of care. Total time managing care of this patient today __40__ minutes. Discharge Plan Discharge Attending provider: Mesha Segovia Medications: New hydroxyzine pamoate 50 mg capsule 50 mg PO TID PRN (Reason: anxiety) Qty: 90 0RF lamotrigine 150 mg tablet 150 mg PO BID Qty: 60 0RF memantine 7 mg capsule,sprinkle,ER 24hr 7 mg PO DAILY Qty: 30 0RF lisdexamfetamine 10 mg capsule 10 mg PO QAM Qty: 30 0RF Rx Instructions: Partial Fill upon patient request. For ADHD, combined type ergocalciferol (vitamin D2) [Vitamin D2] 1,250 mcg (50,000 unit) capsule 1,250 mcg PO QWEEK Qty: 14 0RF vitamin B complex Capsule 1 cap PO DAILY Qty: 30 0RF Rx Instructions: administer with a meal dextroamphetamine-amphetamine 5 mg tablet 5 mg PO BID Qty: 30 0RF Rx Instructions: Partial Fill upon patient request. baclofen 20 mg tablet 20 mg PO BID 15 Days Qty: 30 0RF Continued lamotrigine 200 mg Tablet 200 mg PO DAILY Rx Instructions: Take 1.5 tabs at bedtime. albuterol sulfate 90 mcg/actuation HFA aerosol inhaler 1 - 2 puff inhalation Q6H PRN (Reason: SOB) sumatriptan succinate 50 mg tablet 50 mg PO DAILY PRN (Reason: Migraines) Rx Instructions: Take once a day for Migraines. MR once in two hours if no relief. Do not exceed 2 doses in 24 hrs. guanfacine 2 mg Tablet Extended Release 24 Hr 2 mg PO DAILY Patient Comments: Confirmed with Dr. Segovia patient to take this medication in the morning. VNA is aware. prazosin 2 mg Capsule 4 mg PO BEDTIME Qty: 60 0RF benztropine 0.5 mg tablet See Rx Instructions .ROUTE .COMPLEX 15 Days Qty: 45 0RF Rx Instructions: Take two tabs in the morning and one tab at bedtime. pantoprazole 20 mg Tablet,Delayed Release (Dr/Ec) 20 mg PO DAILY Qty: 30 0RF clonidine HCl 0.2 mg Tablet 0.2 mg PO DAILY@1700 Qty: 15 0RF Rx Instructions: Take at 5pm. lurasidone 60 mg tablet 60 mg PO QAM Qty: 30 0RF Rx Instructions: must administer with food (at least 350 calories) Changed hydroxyzine HCl 25 mg Tablet 25 mg PO TID PRN (Reason: Anxiety) Qty: 45 0RF gabapentin 800 mg tablet 1,600 mg PO BEDTIME Qty: 30 0RF Rx Instructions: take 2 tabs at bedtime. Discontinued baclofen 10 mg tablet 20 mg PO BID Stand Alone Forms: Patient Portal Discharge page Print Language: Cape Verdean
--- NOTE | 2025-01-13 08:38 | HO.PHP ---
PHP admin, Reba, informed the team that Karyn will not be in attendance to program today due to getting a flat tire on her way here. No safety concerns presented.
--- NOTE | 2025-01-16 15:49 | HO.PHP ---
PHP admin, Reba, informed the team that Karyn will not be in attendance to program today, there were no safety concerns presented and she will be here tomorrow.
--- NOTE | 2025-01-17 22:23 | HO.PHPPROGNO ---
Subjective Subjective Date of Service: 01/17/25 Reason For Visit: bipolar Interim History: Patient seen for follow-up, anticipating discharge at the end of program today.? I'm doing really well, no side effects so far. Not affecting my sleep. I notice I am paying attention in groups and feel more present . She denies that it contributes to anxiety and in fact feels it seems to help with her anxiety. Vyvanse at 30-40 mg. Reports no acute issues or concerns. Medication compliant, medications well-tolerated. Denies any adverse effects.?States having VNA has been helpful . She meets with her provider Nena Hastings [phone] (we left message) patient was hoping I could connect with provider regarding ADHD treatment. Next appointment 01/29. I was able to speak with her VNA to clarify med regime. Mood is stable.? Denies any hopelessness or SI. Denies thoughts of harming self or others at this time. Denies any aggressive ideation or HI. Denies any paranoia or AH or VH. Sleep, appetite, energy stable. Medication Compliance: Yes Side effects from medications: No Attending Groups: Yes Review of Systems Acute medical concerns: No Review of Systems: endorses recurring bilateral knee pain, bilateral hand pain (particularly PIP) ESR elevated, otherwise 10-point ROS negative including for rashes, weight change Mental Status Exam Mental Status Exam Narrative: Alert, oriented, in no acute distress. Calm, cooperative. Mood stable, affect appropriate. Speech normal. Thought process linear, coherent, more goal-directed. Thought content related to stressors, future-oriented, denies any helplessness, hopelessness or SI.? No aggressive ideation or HI. No paranoia or delusional content elicited. No evidence of psychosis. Insight and judgment fair-good. Diagnostics Vital Signs (24Hr): BMI result Body Mass Index 49.0 Assessment & Plan Assessment & Plan (1) Bipolar affective, depress, unspec: Status: Acute Code(s): F31.30 - Bipolar disorder, current episode depressed, mild or moderate severity, unspecified (2) Other specified anxiety disorders: Status: Acute Code(s): F41.8 - Other specified anxiety disorders (3) Hoarding behavior: Status: Acute Code(s): F42.3 - Hoarding disorder (4) Attention-deficit hyperactivity disorder, unspecified type: Status: Acute Code(s): F90.9 - Attention-deficit hyperactivity disorder, unspecified type (5) Vitamin D deficiency: Status: Acute Code(s): E55.9 - Vitamin D deficiency, unspecified (6) Mild chronic anemia: Status: Acute Code(s): D64.9 - Anemia, unspecified (7) Vitamin B12 deficiency: Status: Acute Code(s): E53.8 - Deficiency of other specified B group vitamins Plan [facility]charge from [facility] Continue current medications? Refills sent to pharmacy Will defer further medication management to outpatient provider *Safety plan reviewed *Discharge diagnoses, treatment course, discharge plan have been reviewed with patient (including medication regime, medication management, potential side effects) as well as treatment rationale were also revisited *Discharge paperwork signed and given to patient, copy sent for scanning to chart Patient educated on: diagnosis, medication risk/benefits and medical condition Informed Consent: understands Reason for contiued partial hosp. stay Substantial Risk for: stable for discharge Certification I certify that partial hospital treatment is medically necessary due to the symptoms and problems resulting from the patient's mental illness and the failure to treat the patient at the partial hospital level of care would likely result in the patient requiring inpatient psychiatric care which could not be prevented at a less intensive level of care. Total time managing care of this patient today __45__ minutes. Discharge Plan Discharge Attending provider: Mesha Segovia Medications: New lisdexamfetamine 10 mg capsule 10 mg PO QAM Qty: 30 0RF Rx Instructions: Partial Fill upon patient request. For ADHD, combined type ergocalciferol (vitamin D2) [Vitamin D2] 1,250 mcg (50,000 unit) capsule 1,250 mcg PO QWEEK Qty: 14 0RF vitamin B complex Capsule 1 cap PO DAILY Qty: 30 0RF Rx Instructions: administer with a meal Continued albuterol sulfate 90 mcg/actuation HFA aerosol inhaler 1 - 2 puff inhalation Q6H PRN (Reason: SOB) sumatriptan succinate 50 mg tablet 50 mg PO DAILY PRN (Reason: Migraines) Rx Instructions: Take once a day for Migraines. MR once in two hours if no relief. Do not exceed 2 doses in 24 hrs. lisdexamfetamine 20 mg capsule 20 mg PO QAM Qty: 30 0RF Rx Instructions: Partial Fill upon patient request. For ADHD. lamotrigine 150 mg tablet 150 mg PO BID Qty: 60 0RF benztropine 0.5 mg tablet See Rx Instructions .ROUTE .COMPLEX 30 Days Qty: 90 0RF Rx Instructions: Take two tabs in the morning and one tab at bedtime. hydroxyzine pamoate 50 mg capsule 50 mg PO TID PRN (Reason: anxiety) Qty: 90 0RF baclofen 20 mg tablet 20 mg PO BID 30 Days Qty: 60 0RF clonidine HCl 0.2 mg Tablet 0.2 mg PO DAILY@1700 Qty: 30 0RF Rx Instructions: Take at 5pm. prazosin 2 mg Capsule 4 mg PO BEDTIME Qty: 60 0RF guanfacine 2 mg Tablet Extended Release 24 Hr 2 mg PO DAILY Qty: 30 0RF memantine 14 mg capsule,sprinkle,ER 24hr 14 mg PO BEDTIME Qty: 30 0RF Changed gabapentin 800 mg tablet 1,600 mg PO BEDTIME Qty: 60 0RF Rx Instructions: take 2 tabs at bedtime. lurasidone 60 mg tablet 60 mg PO QPM Qty: 30 0RF Rx Instructions: must administer with food (at least 350 calories) Discontinued lamotrigine 200 mg Tablet 200 mg PO DAILY Rx Instructions: Take 1.5 tabs at bedtime. baclofen 10 mg tablet 20 mg PO BID hydroxyzine HCl 25 mg Tablet 25 mg PO DAILY PRN (Reason: Anxiety) pantoprazole 20 mg Tablet,Delayed Release (Dr/Ec) 20 mg PO DAILY Stand Alone Forms: Patient Portal Discharge page Patient Education: ADHD in Adults (ED), Bipolar Disorder (DC) Print Language: [place]
== END 2025-01-17 23:59 | disposition home or self-care (01) ==
LOC: HO.PHPA 08:00
PROVIDERS: Visit Provider Psychiatry & Neurology Psychiatry
DX: F31.30 Bipolar disorder, current episode depressed, mild or moderate severity, unspecified (principal); F41.8 Other specified anxiety disorders; F42.3 Hoarding disorder; F90.9 Attention-deficit hyperactivity disorder, unspecified type; E55.9 Vitamin D deficiency, unspecified; D64.9 Anemia, unspecified; E53.8 Deficiency of other specified B group vitamins; R41.844 Frontal lobe and executive function deficit; F11.21 Opioid dependence, in remission; Z79.899 Other long term (current) drug therapy
CPT/HCPCS: 90791; 90853